=== PATIENT | male | born 1975 | race African-American/Black ===

== ENCOUNTER 2016-07-04 09:02 | Emergency (ER) | payer MEDICARE ==
[2016-07-04 09:20] VITALS: BP 114/78
[2016-07-04] MEDS ORDERED: KETOROLAC TROMETHAMINE INJ/PF 30 MG/1 ML SDV IV ONE (09:38)
[2016-07-04] MEDS ORDERED: PROCHLORPERAZINE EDISYLATE INJ 10 MG/2 ML VIAL IV ONE (09:38)
[2016-07-04] MEDS ORDERED: DIPHENHYDRAMINE HCL 50 MG/ML VIAL IV ONE (09:38)
[2016-07-04] MEDS ORDERED: BENZONATATE 100 MG CAPSULE PO ONE (09:39)
[2016-07-04] MEDS ORDERED: LIDOCAINE 5% (700 MG) TRANSDERMAL ADH..PATCH TP ONE (09:39)
[2016-07-04] MEDS ORDERED: ONDANSETRON ODT 4 MG TAB (6 TAB/DSPK) PO PRN (09:39)
--- NOTE | 2016-07-04 09:42 | ER Document Report ---
ED General - General Chief Complaint: Headache Stated Complaint: BACK PAIN Notes: Patient is a 40-year-old male with past medical history of HIV last known CD4 count was 750 who presents with multiple complaints. His first complaint is of a left-sided, dull, constant, throbbing headache with associated photophobia, nausea and vomiting. He states this is very similar to his prior migraine headaches. He has been trying [id number]-wozuqtk pain medication without relief. States this is the primary reason he came to the emergency department today. He has had come to the ER in the past for similar migraine headaches. He denies any associated weakness or numbness, confusion, fever, or altered mental status. He has complaints of chronic low back pain which he states is in the bilateral lumbar region and unchanged from prior. No difficulty with walking, urinary retention, incontinence, or distal weakness or numbness. He is also complaining of upper respiratory infection symptoms including nasal congestion, sore throat, a cough with production of a small amount of sputum. Multiple sick contacts with similar illness. Denies any shortness of breath, fever, syncope, or chest wall pain. TRAVEL OUTSIDE OF THE [place] IN LAST 30 DAYS: No - Related Data Allergies/Adverse Reactions: No Known Allergies Allergy (Verified 02/07/16 08:48) Past Medical History - General Information source: Patient - Social History Smoking Status: Current Every Day Smoker Frequency of alcohol use: None Drug Abuse: None Lives with: Spouse/Significant other Family History: Reviewed & Not Pertinent - Patient states none Patient has suicidal ideation: No Patient has homicidal ideation: No Pulmonary Medical History: Reports: Hx Asthma, Hx Bronchitis, Hx Pneumonia Neurological Medical History: Reports: Hx Migraine Renal/ Medical History: Denies: Hx Peritoneal Dialysis Musculoskeltal Medical History: Reports Hx Arthritis, Reports Hx Musculoskeletal Deformity - Chronic back pain Psychiatric Medical History: Reports: Hx Bipolar Disorder, Hx Depression Infectious Medical History: Reports: Hx HIV - Immunizations Hx Diphtheria, Pertussis, Tetanus Vaccination: Yes - 2011 Hx Pneumococcal Vaccination: 03/13/11 Review of Systems - Review of Systems Notes: Constitutional: Negative for fever. HENT: Positive for sore throat. Eyes: Negative for visual changes. Cardiovascular: Negative for chest pain. Respiratory: Negative for shortness of breath. Gastrointestinal: Negative for abdominal pain, positive for vomiting Genitourinary: Negative for dysuria. Musculoskeletal: Positive for back pain. Skin: Negative for rash. Neurological: Positive for headache, weakness or numbness. 10 point ROS negative except as marked above and in HPI. Physical Exam - Vital signs Vitals: Temp Pulse Resp BP Pulse Ox 98.4 F 97 20 114/78 95 07/04/16 09:07 07/04/16 09:07 07/04/16 09:07 07/04/16 09:07 07/04/16 09:07 Interpretation: Normal Notes: PHYSICAL EXAMINATION: GENERAL: Well-appearing, well-nourished and in no acute distress. HEAD: Atraumatic, normocephalic. EYES: Pupils equal round and reactive to light, extraocular movements intact, sclera anicteric, conjunctiva are normal. ENT: Nasal congestion, oropharynx clear without exudates. Moist mucous membranes. NECK: Normal range of motion, supple without lymphadenopathy LUNGS: Breath sounds clear to auscultation bilaterally and equal. No wheezes rales or rhonchi. HEART: Regular rate and rhythm without murmurs ABDOMEN: Soft, nontender, normoactive bowel sounds. No guarding, no rebound. No masses appreciated. EXTREMITIES: Normal range of motion, no pitting or edema. No cyanosis. Back: No midline spinal tenderness step-offs or deformities NEUROLOGICAL: Face symmetric. Tongue protrudes midline. Extraocular motions intact. Pupils are 2 mm and equally reactive. Normal speech, normal gait. 5 out of 5 strength in both the distal and proximal upper and lower extremities bilaterally. Sensation is grossly intact throughout. Finger to nose testing normal. Pronator drift normal. PSYCH: Normal mood, normal affect. SKIN: Warm, Dry, normal turgor, no rashes or lesions noted. Course - Re-evaluation Re-evalutation: 07/04/16 09:39 Patient presents with 3 complaints: Headache, a persistent cough for the past 5 days, and chronic back pain. Regarding patient's headache: appears to be most consistent with tension versus migrainous type headache. Headache was not maximal in onset, patient has no focal neurologic deficits, no nuchal rigidity, vital signs within normal limits , no papilledema, and patient is overall well in appearance. Based on clinical history and examination I do not suspect an acute subarachnoid hemorrhage, dural venous sinus thrombosis, acute meningitis, or intercranial mass. Given my low clinical suspicion for any acute life-threatening etiology, I do not feel advanced neuro imaging or laboratory testing is indicated at this time. Will proceed with headache cocktail and reassess. Regarding patient's back pain: No rapid progression of symptoms, systemic symptoms including fevers, chills, weight loss, history of recent bacterial infection, bilateral symptoms, numbness, weakness, difficulty walking, urinary retention or bowel incontinence, personal history of cancer, known AAA, or history of IV drug use. Exam is without point tenderness over vertebral bodies , pulsatile abdominal mass, and patient has symmetric and intact lower extremity strength, sensation, and reflexes without clonus. 2+ symmetric medial malleolar and dorsalis pedis pulses. Based on history and physical, I have a very low suspicion of a concerning etiology of pain including epidural compression syndrome, spinal infection, transverse myelitis, malignancy, abdominal aortic aneurysm, renal colic, acute lower extremity claudication, neurogenic claudication, ankylosing spondylitis, or other intra-abdominal process. Due to absence of concerning risk factors in history and physical as well as absence of rapidly progressive, severe, or bilateral symptoms, will defer imaging at this point. Of note patient had an MRI of his back for this same pain 5 months ago that did not show any acute findings. Regarding patient's cough and nasal congestion: Most consistent with a viral upper respiratory infection. Patient is overall well appearance, vitals within normal limits, well-hydrated. Patient denies any headache, neck pain, and has no evidence of meningismus on examination. Lungs are clear bilaterally. No evidence of respiratory distress. Based on clinical exam and history, I do not suspect an acute pneumonia, meningitis, strep pharyngitis, or an acute encephalitis. No laboratory or imaging testing is indicated at this time. 07/04/16 10:29 I is had resolution of his headache after receiving a migraine cocktail. He remains well in appearance, able to ambulate without difficulty, no focal neurologic deficits, vitals remained within normal limits.At this time will discharge with return precautions and follow-up recommendations. Verbal discharge instructions given a the bedside and opportunity for questions given. Medication warnings reviewed. Patient is in agreement with this plan and has verbalized understanding of return precautions and the need for primary care follow-up in the next 24-72 hours. - Vital Signs Vital signs: Temp Pulse Resp BP Pulse Ox 98.4 F 97 20 114/78 95 07/04/16 09:07 07/04/16 09:07 07/04/16 09:07 07/04/16 09:07 07/04/16 09:07 Discharge - Discharge Clinical Impression: Chronic back pain Qualifiers: Back pain location: low back pain Back pain laterality: bilateral Sciatica presence: without sciatica Qualified Code(s): M54.5 - Low back pain Upper respiratory infection Qualifiers: URI type: unspecified URI Qualified Code(s): J06.9 - Acute upper respiratory infection, unspecified Headache Qualifiers: Headache type: unspecified Headache chronicity pattern: acute headache Intractability: not intractable Qualified Code(s): R51 - Headache Condition: Good Disposition: HOME, SELF-CARE Additional Instructions: Your symptoms are most likely due to a viral infection it should resolve over the next 7-14 days. You should take yagg-aud-verwneb guanfacine per bottle instructions to help thin the mucus. For nasal congestion: I would recommend that you get gzjt-ivj-penoior oxymetazoline also known is afrin. Use only per bottle instructions and be sure to never use this for more than 3 days if you can develop severe rebound congestion. You may also use tylenol or ibuprofen as needed for aches and thorat discomfort. Please be sure to drink plenty of fluids and get rest. Return to the emergency department he began having difficulty breathing, chest pain, persistent vomiting, or any other symptoms that are concerning to you. You have been seen in the Emergency Department (ED) today for back pain. Your workup and exam have not shown any acute abnormalities and you are likely suffering from muscle strain or possible problems with your discs, but there is no treatment that will fix your symptoms at this time. You should also purchase a local lidocaine cream such as "aspercreme with lidocaine" and use per bottle instructions to the affected area. Apply heat to the area as often as you are able. Continue to keep active and avoid prolonged periods of bed rest. Please follow up with your doctor as soon as possible regarding today's ED visit and your back pain. Return to the ED for worsening back pain, fever, weakness or numbness of either leg, or if you develop either (1) an inability to urinate or have bowel movements, or (2) loss of your ability to control your bathroom functions (if you start having "accidents"), or if you develop other new symptoms that concern you.concern you. You have been seen in the Emergency Department (ED) for a headache. Please use Tylenol (acetaminophen) or Motrin (ibuprofen) as needed for symptoms, but only as written on the box. As we have discussed, please follow up with your primary care doctor as soon as possible regarding today's ED visit and your headache symptoms. Call your doctor or return to the ED if you have a worsening headache, sudden and severe headache, confusion, slurred speech, facial droop, weakness or numbness in any arm or leg, extreme fatigue, or other symptoms that concern you. Prescriptions: Benzonatate [Tessalon Perles 100 mg Capsule] 100 mg PO Q8HP PRN #40 capsule PRN Reason:
== END 2016-07-04 10:05 | disposition home or self-care (01) ==
LOC: ER 09:02
DX: G89.29 Other chronic pain (principal); M54.5 Low back pain; J06.9 Acute upper respiratory infection, unspecified; R51 Headache; H53.149 Visual discomfort, unspecified; R11.2 Nausea with vomiting, unspecified; F17.200 Nicotine dependence, unspecified, uncomplicated; Z21 Asymptomatic human immunodeficiency virus [HIV] infection status
CPT/HCPCS: 99283; 96374; 96375; A9270 ×2; J1200; J1885; J0780

== ENCOUNTER 2016-07-28 14:42 | Emergency (ER) | payer OTHER, MEDICARE ==
[2016-07-28 15:03] VITALS: BP 121/75
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
== END 2016-07-28 16:15 | disposition home or self-care (01) ==
LOC: ER 14:42
DX: S16.1XXA Strain of muscle, fascia and tendon at neck level, initial encounter (principal); S29.019A Strain of muscle and tendon of unspecified wall of thorax, initial encounter; S39.012A Strain of muscle, fascia and tendon of lower back, initial encounter; M25.519 Pain in unspecified shoulder; M79.606 Pain in leg, unspecified; V89.2XXA Person injured in unspecified motor-vehicle accident, traffic, initial encounter
CPT/HCPCS: 99283

== ENCOUNTER 2016-07-30 09:28 | Emergency (ER) | payer OTHER, MEDICARE, MEDICAID ==
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
[2016-07-30 10:33] VITALS: BP 110/57
[2016-07-30 10:51] LABS: HEMATOCRIT 40.3 % (37.9-51.0); HEMOGLOBIN 13.6 g/dL (13.5-17.0); HGB HCT DIFFERENCE 0.5; MEAN CORPUSCULAR HEMOGLOBIN 29.6 pg (27.0-33.4); MEAN CORPUSCULAR HGB CONC 33.7 g/dL (32.0-36.0); MEAN CORPUSCULAR VOLUME 88 fl (80-97); RED BLOOD COUNT 4.58 10^6/uL (4.35-5.55); RED CELL DISTRIBUTION WIDTH 12.7 % (11.5-14.0); WHITE BLOOD COUNT 6.2 10^3/uL (4.0-10.5)
[2016-07-30 11:12] LABS: BASOPHILS % (MANUAL) 0 % (0-2); EOSINOPHILS % (MANUAL) 0 % (0-6); LYMPHOCYTES % (MANUAL) 46 % (13-45); TOTAL CELLS COUNTED 100
[2016-07-30 11:14] LABS: POIKILOCYTOSIS SLIGHT
[2016-07-30 11:17] LABS: ALANINE AMINOTRANSFERASE 55 U/L (21-72); ALKALINE PHOSPHATASE 83 U/L (38-126); ANION GAP 11 (5-19); ASPARTATE AMINO TRANSFERASE 62 U/L (17-59); BILIRUBIN,DIRECT 0.3 mg/dL (0.0-0.4); BILIRUBIN,TOTAL 0.6 mg/dL (0.2-1.3); BLOOD UREA NITROGEN 17 mg/dL (7-20); CALCIUM 9.4 mg/dL (8.4-10.2); CARBON DIOXIDE 25 mmol/L (22-30); CHLORIDE 109 mmol/L (98-107); CREATINE KINASE 640 U/L (55-170); CREATININE RESULT 1.06 mg/dL (0.52-1.25); GLUCOSE 92 mg/dL (75-110); POTASSIUM 4.2 mmol/L (3.6-5.0); SODIUM 144.7 mmol/L (137-145); TOTAL PROTEIN 7.9 g/dL (6.3-8.2)
[2016-07-30] MEDS ORDERED: TRAMADOL HCL 50 MG TABLET PO ONE (11:33)
== END 2016-07-30 11:58 | disposition home or self-care (01) ==
LOC: ER 09:28
DX: M25.512 Pain in left shoulder (principal); M54.9 Dorsalgia, unspecified; R07.89 Other chest pain; V49.50XA Passenger injured in collision with unspecified motor vehicles in traffic accident, initial encounter; R74.8 Abnormal levels of other serum enzymes; J45.909 Unspecified asthma, uncomplicated; Z21 Asymptomatic human immunodeficiency virus [HIV] infection status; Z76.5 Malingerer [conscious simulation]
CPT/HCPCS: 36415; 80053; 82550; 85025; 99283

== ENCOUNTER 2017-06-11 03:16 | Emergency (ER) | payer MEDICARE, MEDICAID ==
[2017-06-11 04:00] LABS: ABSOLUTE EOSINOPHILS # (AUTO) 0.2 10^3/uL (0.0-0.6); ABSOLUTE LYMPHOCYTES (AUTO) 2.3 10^3/uL (0.5-4.7); ABSOLUTE MONOCYTES (AUTO) 0.5 10^3/uL (0.1-1.4); ABSOLUTE NEUT (AUTO) 2.4 10^3/uL (1.7-8.2); BASOPHILS % (AUTO) 0.8 % (0-2); EOSINOPHILS % (AUTO) 2.9 % (0-6); HEMATOCRIT 42.7 % (37.9-51.0); HEMOGLOBIN 14.6 g/dL (13.5-17.0); LYMPHOCYTES % (AUTO) 42.5 % (13-45); MEAN CORPUSCULAR HEMOGLOBIN 30.8 pg (27.0-33.4); MEAN CORPUSCULAR HGB CONC 34.1 g/dL (32.0-36.0); MEAN CORPUSCULAR VOLUME 91 fl (80-97); MONOCYTES % (AUTO) 9.7 % (3-13); PLATELET COUNT 251 10^3/uL (150-450); RED BLOOD COUNT 4.72 10^6/uL (4.35-5.55); RED CELL DISTRIBUTION WIDTH 12.9 % (11.5-14.0); SEGMENTED NEUTROPHILS % (AUTO) 44.1 % (42-78); TOTAL CELLS COUNTED % (AUTO) 100 %; WHITE BLOOD COUNT 5.3 10^3/uL (4.0-10.5)
[2017-06-11 04:27] LABS: ALANINE AMINOTRANSFERASE 44 U/L (21-72); ALBUMIN 3.8 g/dL (3.5-5.0); ALKALINE PHOSPHATASE 78 U/L (38-126); ANION GAP 9 (5-19); ASPARTATE AMINO TRANSFERASE 82 U/L (17-59); BILIRUBIN,DIRECT 0.4 mg/dL (0.0-0.4); BILIRUBIN,TOTAL 0.4 mg/dL (0.2-1.3); BLOOD UREA NITROGEN 20 mg/dL (7-20); CALCIUM 9.3 mg/dL (8.4-10.2); CARBON DIOXIDE 26 mmol/L (22-30); CHLORIDE 106 mmol/L (98-107); GLUCOSE 97 mg/dL (75-110); LIPASE 340.3 U/L (23-300); POTASSIUM 4.3 mmol/L (3.6-5.0); SODIUM 141.3 mmol/L (137-145); TOTAL PROTEIN 7.5 g/dL (6.3-8.2)
[2017-06-11] MEDS ORDERED: DICYCLOMINE HCL 20 MG TABLET PO ONE (04:45)
[2017-06-11] MEDS ORDERED: ONDANSETRON 4 MG TAB.RAPDIS PO ONE (04:45)
--- NOTE | 2017-06-11 04:45 | ER Document Report ---
ED General - General Chief Complaint: Abdominal Pain Stated Complaint: ABDOMINAL PAIN Time Seen by Provider: 06/11/17 03:59 TRAVEL OUTSIDE OF THE [place]. IN LAST 30 DAYS: No - HPI Patient complains to provider of: Abdominal pain Notes: Patient coming in for evaluation of abdominal pain. Patient has a history of HIV. Patient upon my evaluation sleeping easily arousable. When asked the patient about abdominal pain patient states "my stomach hurts". Denies fever chills nausea vomiting diarrhea. Patient is unable to pinpoint a 6 area of abdominal pain rubs his entire stomach when I asked the patient where he is tender at. Patient looks to be no obvious distress - Related Data Allergies/Adverse Reactions: No Known Allergies Allergy (Verified 06/11/17 03:25) Past Medical History - Social History Smoking Status: Unknown if Ever Smoked Family History: None Pulmonary Medical History: Reports: Hx Asthma, Hx Bronchitis, Hx Pneumonia Neurological Medical History: Reports: Hx Migraine Renal/ Medical History: Denies: Hx Peritoneal Dialysis Musculoskeltal Medical History: Reports Hx Arthritis, Reports Hx Musculoskeletal Deformity - Chronic back pain Psychiatric Medical History: Reports: Hx Bipolar Disorder, Hx Depression Infectious Medical History: Reports: Hx HIV - Immunizations Hx Diphtheria, Pertussis, Tetanus Vaccination: Yes - 2011 Hx Pneumococcal Vaccination: 03/13/11 Review of Systems - Review of Systems Constitutional: No symptoms reported EENT: No symptoms reported Cardiovascular: No symptoms reported Respiratory: No symptoms reported Gastrointestinal: Abdominal pain Genitourinary: No symptoms reported Male Genitourinary: No symptoms reported Musculoskeletal: No symptoms reported Skin: No symptoms reported Hematologic/Lymphatic: No symptoms reported Neurological/Psychological: No symptoms reported -: Yes All other systems reviewed and negative - 1 Physical Exam - Vital signs Interpretation: Normal - General General appearance: Appears well, Alert - HEENT Head: Normocephalic, Atraumatic Eyes: Normal Pupils: PERRL - Respiratory Respiratory status: No respiratory distress Chest status: Nontender Breath sounds: Normal Chest palpation: Normal - Cardiovascular Rhythm: Regular Heart sounds: Normal auscultation Murmur: No - Abdominal Inspection: Normal Distension: No distension Bowel sounds: Normal Tenderness: Nontender - Patient's abdomen is nontender to deep auscultation however when I use my hand to palpate his abdomen patient tenses up and moans in pain. Is very inconsistent. Organomegaly: No organomegaly - Back Back: Normal, Nontender - Extremities General upper extremity: Normal inspection, Nontender, Normal color, Normal ROM , Normal temperature General lower extremity: Normal inspection, Nontender, Normal color, Normal ROM , Normal temperature, Normal weight bearing. No: Rena's sign - Neurological Neuro grossly intact: Yes Cognition: Normal Orientation: AAOx4 Sonido Coma Scale Eye Opening: Spontaneous Son[place] Coma Scale Verbal: Oriented [place] Coma Scale Motor: Obeys Commands [place] Coma Scale Total: 15 Speech: Normal Motor strength normal: LUE, RUE, LLE, RLE Sensory: Normal - Psychological Associated symptoms: Normal affect, Normal mood - Skin Skin Temperature: Warm Skin Moisture: Dry Skin Color: Normal Course - Re-evaluation Re-evalutation: 06/11/17 06:19 The patient presents with abdominal pain without signs of peritonitis or other life-threatening or serious etiology. The patient appears stable for discharge and has been instructed to return immediately if the symptoms worsen in any way , or in 8-12hr if not improved for re-evaluation. The patient has been instructed to return if the symptoms worsen or change in any way. - Laboratory Result Diagrams: 06/11/17 03:50 06/11/17 03:50 Laboratory results interpreted by me: 06/11/17 03:50 AST 82 H Lipase 340.3 H Discharge - Discharge Clinical Impression: Hx of human immunodeficiency virus infection Abdominal pain Qualifiers: Abdominal location: generalized Qualified Code(s): R10.84 - Generalized abdominal pain Condition: Good Disposition: HOME, SELF-CARE Instructions: Abdominal Pain ([facility]), Antispasmodics ([facility]) Additional Instructions: Your laboratory studies not reveal significant pathology for abdominal pain. Her abdominal examination was benign. Take medication as prescribed return to ER symptoms worsen. Prescriptions: Dicyclomine HCl [Bentyl 20 mg Tablet] 20 mg PO QID #30 tablet Ondansetron [Zofran Odt] 4 mg PO Q6 PRN #30 tab.rapdis PRN Reason: For Nausea/Vomiting
[2017-06-11 06:24] VITALS: BP 122/76
== END 2017-06-11 06:30 | disposition home or self-care (01) ==
LOC: ER 03:16
DX: R10.84 Generalized abdominal pain (principal); B20 Human immunodeficiency virus [HIV] disease; J45.909 Unspecified asthma, uncomplicated
CPT/HCPCS: 99284; 36415; 83690; 85025; 80053; A9270 ×2; J3490; S0119

== ENCOUNTER 2017-07-05 13:53 | Emergency (ER) | payer MEDICARE, MEDICAID ==
--- NOTE | 2017-07-05 16:27 | RADIOLOGY REPORT (SQ) ---
EXAM DESCRIPTION: CHEST 2 VIEWS COMPLETED DATE/TIME: 07/05/2017 4:16 pm REASON FOR STUDY: cough COMPARISON: 08/24/2015 EXAM PARAMETERS: NUMBER OF VIEWS: two views TECHNIQUE: Digital Frontal and Lateral radiographic views of the chest acquired. RADIATION DOSE: NA LIMITATIONS: none FINDINGS: LUNGS AND PLEURA: No opacities, masses or pneumothorax. No pleural effusion. MEDIASTINUM AND HILAR STRUCTURES: No masses or contour abnormalities. HEART AND VASCULAR STRUCTURES: Heart normal size. No evidence for failure. BONES: No acute findings. HARDWARE: None in the chest. OTHER: No other significant finding. IMPRESSION: NO ACUTE RADIOGRAPHIC FINDING IN THE CHEST. TECHNICAL DOCUMENTATION: JOB ID: [id number] [employer]- All Rights Reserved Reading location - IP/workstation name: [email or web address]
--- NOTE | 2017-07-05 16:42 | ER Document Report ---
HPI - HPI Pain Level: 4 Notes: Patient is a 41-year-old male with a history of HIV, noncompliance, who presents to the ED complaining of a dry semi-productive cough 2 months. Patient states that he has been using [id number] meds with minimal relief. He is still eating and drinking without difficulties. He is urinating normally and having normal bowel movements. Patient states that the cough is starting to cause soreness around his sides and his back. Patient is usually seen through [facility], and has not been taking his medications as he was told to. He denies any drug allergies or IV drug use. No other concerns or complaints at this time. Denies any headache, fever, neck pain, URI, sore throat, chest pain, palpitations, syncope, shortness of breath, wheeze, dyspnea , abdominal pain, nausea/vomiting/diarrhea, urinary retention, dysuria, hematuria, loss of control of bowel or bladder, numbness/tingling, saddle anesthesia, muscle paralysis/weakness, or rash. - ROS Systems Reviewed and Negative: Yes All other systems reviewed and negative - REPRODUCTIVE Reproductive: DENIES: : Past Medical History - Social History Smoking Status: Unknown if Ever Smoked Family History: None Pulmonary Medical History: Reports: Hx Asthma, Hx Bronchitis, Hx Pneumonia Neurological Medical History: Reports: Hx Migraine Renal/ Medical History: Denies: Hx Peritoneal Dialysis Musculoskeltal Medical History: Reports Hx Arthritis, Reports Hx Musculoskeletal Deformity - Chronic back pain Psychiatric Medical History: Reports: Hx Bipolar Disorder, Hx Depression Infectious Medical History: Reports: Hx HIV - Immunizations Hx Diphtheria, Pertussis, Tetanus Vaccination: Yes - 2011 Hx Pneumococcal Vaccination: 03/13/11 Vertical Provider Document - CONSTITUTIONAL Agree With Documented VS: Yes Notes: PHYSICAL EXAMINATION: GENERAL: Well-appearing, well-nourished and in no acute distress. A&Ox4. Answers questions appropriately. Moves comfortably w/o notable distress HEAD: Atraumatic, normocephalic. EYES: Pupils equal round and reactive to light, extraocular movements intact, sclera anicteric, conjunctiva are normal. ENT: EAC clear b/l. TM's intact b/l without erythema, fluid, or perforation. Nares patent and without discharge. oropharynx no erythema without exudates. No tonsilar hypertrophy without erythema or exudate. No palatine shift. Uvula midline. No tongue protrusion. No drooling, hoarseness, or airway compromise. Moist mucous membranes. No sinus tenderness. NECK: Normal range of motion, supple without lymphadenopathy. No rigidity/ meningismus. LUNGS: Breath sounds clear to auscultation bilaterally and equal. No wheezes rales or rhonchi. No retractions HEART: Regular rate and rhythm without murmurs, rubs, gallops. ABDOMEN: Soft, nontender, nondistended abdomen. No guarding, no rebound. No masses appreciated. Normal bowel sounds present. No CVA tenderness bilaterally. NEUROLOGICAL: Normal speech, normal gait. Normal sensory, motor exams PSYCH: Normal mood, normal affect. SKIN: Warm, Dry, normal turgor, no rashes or lesions noted. - INFECTION CONTROL TRAVEL OUTSIDE OF THE [place] IN LAST 30 DAYS: No Course - Re-evaluation Re-evalutation: 07/05/17 16:43 Patient is an afebrile, well-hydrated, 41-year-old male, HIV positive, who presents to the ED with acute bronchitis. Vitals are acceptable. PE is otherwise unremarkable. Patient has had symptoms for 2 months. He has not been taking his antiviral medications. He has no significant tachycardia, tachypnea, or hypoxia. He is tolerating p.o. without difficulties. He is nontoxic-appearing. Because of his prolonged symptoms and medical history, I will send him home with a prescription for Zithromax. Chest x-ray was negative otherwise. Low suspicion for any sepsis, meningitis, severe dehydration, pneumothorax, dissection, or other systemic emergent condition at this time. Conservative measures otherwise for symptoms. Recheck with your PCM this week. Return to the ED with any worsening/concerning symptoms otherwise as reviewed discharge. Patient is in agreement. - Vital Signs Vital signs: Temp Pulse Resp BP Pulse Ox 98.1 F 91 16 121/85 97 07/05/17 14:16 07/05/17 14:16 07/05/17 14:16 07/05/17 14:16 07/05/17 14:16 Discharge - Discharge Clinical Impression: Acute bronchitis Qualifiers: Bronchitis organism: unspecified organism Qualified Code(s): J20.9 - Acute bronchitis, unspecified Condition: Stable Disposition: HOME, SELF-CARE Instructions: Bronchitis ([facility]) Additional Instructions: Maintain adequate fluid intake Take meds as directed tylenol/ibuprofen as needed over the counter cold medication as needed for symptoms Humidified air may help Wash your hands regularly Wear a mask when coughing F/u: with your PCM in 3-5 days for a recheck Return to the ED with any fever, worsening pain, chest pain, palpitations, syncope, worsening LANDRY, neck pain/stiffness, shortness of breath, wheezing, drooling, trouble swallowing/breathing, abdominal pain, n/v/d, rash, or worsening/concerning symptoms otherwise. Prescriptions: Azithromycin [Zithromax 250 mg Tablet] 250 mg PO ASDIR PRN #6 tablet PRN Reason: Referrals: Zaid Costello [Other] - Follow up in 3-5 days
[2017-07-05 17:15] VITALS: BP 130/92
== END 2017-07-05 17:16 | disposition home or self-care (01) ==
LOC: ER 13:53
DX: J20.9 Acute bronchitis, unspecified (principal); B20 Human immunodeficiency virus [HIV] disease
CPT/HCPCS: 71046; 99283

== ENCOUNTER 2017-07-31 04:54 | Emergency (ER) | payer MEDICARE, MEDICAID ==
[2017-07-31 04:59] VITALS: BP 130/93
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
[2017-07-31] MEDS ORDERED: ACETAMINOPHEN 325 MG TABLET PO ONE (06:37)
[2017-07-31] MEDS ORDERED: IBUPROFEN 600 MG TABLET PO ONE (06:37)
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
== END 2017-07-31 06:58 | disposition home or self-care (01) ==
LOC: ER 04:54
DX: S40.011A Contusion of right shoulder, initial encounter (principal); M25.561 Pain in right knee; M54.2 Cervicalgia; M25.511 Pain in right shoulder; Y04.8XXA Assault by other bodily force, initial encounter; J45.909 Unspecified asthma, uncomplicated
CPT/HCPCS: 99284; 73564; 73030; A9270 ×2

== ENCOUNTER 2017-09-18 02:32 | Emergency (ER) | payer MEDICARE, MEDICAID ==
[2017-09-18 02:40] VITALS: BP 124/68
--- NOTE | 2017-09-18 05:29 | ER Document Report ---
HPI - HPI Patient complains to provider of: left hand pain Pain Level: Denies - REPRODUCTIVE Reproductive: DENIES: : Past Medical History - Social History Family History: None Pulmonary Medical History: Reports: Hx Asthma, Hx Bronchitis, Hx Pneumonia Neurological Medical History: Reports: Hx Migraine Renal/ Medical History: Denies: Hx Peritoneal Dialysis Musculoskeletal Medical History: Reports Hx Arthritis, Reports Hx Musculoskeletal Deformity - Chronic back pain Psychiatric Medical History: Reports: Hx Bipolar Disorder, Hx Depression Infectious Medical History: Reports: Hx HIV - Immunizations Hx Diphtheria, Pertussis, Tetanus Vaccination: Yes - 2011 Hx Pneumococcal Vaccination: 03/13/11 Vertical Provider Document - INFECTION CONTROL TRAVEL OUTSIDE OF THE [place] IN LAST 30 DAYS: No Course - Vital Signs Vital signs: Temp Pulse Resp BP Pulse Ox 97.7 F 93 16 124/68 98 09/18/17 02:38 09/18/17 02:38 09/18/17 02:38 09/18/17 02:38 09/18/17 02:38
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
--- NOTE | 2017-09-18 06:15 | RADIOLOGY REPORT (SQ) ---
Left hand three view on 09/18/2017 at 5:26 AM Clinical indications: Injury, third digit swelling, pain COMPARISON: None FINDINGS: There is no radiopaque foreign body. There are no acute fractures. Visualized joints are well aligned. No bony abnormality is noted. IMPRESSION: No acute bony abnormality.
[2017-09-18] MEDS ORDERED: ACETAMINOPHEN 325 MG TABLET PO ONE (06:41)
[2017-09-18] MEDS ORDERED: IBUPROFEN 600 MG TABLET PO ONE (06:41)
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
== END 2017-09-18 07:09 | disposition home or self-care (01) ==
LOC: ER 02:32
DX: S69.92XA Unspecified injury of left wrist, hand and finger(s), initial encounter (principal); Y04.0XXA Assault by unarmed brawl or fight, initial encounter; F17.200 Nicotine dependence, unspecified, uncomplicated; J45.909 Unspecified asthma, uncomplicated; Z21 Asymptomatic human immunodeficiency virus [HIV] infection status
CPT/HCPCS: 99283; 73130; A9270 ×2

== ENCOUNTER 2018-09-06 09:27 | Emergency (ER) | payer MEDICARE, MEDICAID ==
[2018-09-06 09:45] VITALS: BP 133/94
[2018-09-06] MEDS ORDERED: ACETAMINOPHEN 325 MG TABLET PO ONE (09:55)
[2018-09-06] MEDS ORDERED: IPRATROPIUM/ALBUTEROL 0.5-2.5 MG/3 ML AMPUL NEB ONE (09:55)
[2018-09-06] MEDS ORDERED: PREDNISONE 20 MG TABLET PO ONE (09:55)
[2018-09-06] MEDS ORDERED: LIDOCAINE 5% (700 MG) TRANSDERMAL ADH..PATCH TP ONE (09:55)
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
== END 2018-09-06 11:15 | disposition home or self-care (01) ==
LOC: ER 09:27
DX: R07.81 Pleurodynia (principal); S91.112A Laceration without foreign body of left great toe without damage to nail, initial encounter; X58.XXXA Exposure to other specified factors, initial encounter; J02.9 Acute pharyngitis, unspecified; J45.909 Unspecified asthma, uncomplicated; F17.200 Nicotine dependence, unspecified, uncomplicated; Z87.01 Personal history of pneumonia (recurrent); Z21 Asymptomatic human immunodeficiency virus [HIV] infection status
CPT/HCPCS: 94640; 99283; 87070; 87880; 87077; 71046; A9270 ×3; J7512; J7620

== ENCOUNTER 2018-11-01 06:36 | Emergency (ER) | payer MEDICARE, MEDICAID ==
[2018-11-01] MEDS ORDERED: KETOROLAC TROMETHAMINE INJ/PF 30 MG/1 ML SDV IV ONE (07:04)
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
[2018-11-01 07:17] LABS: ABSOLUTE BASOPHILS # (AUTO) 0.1 10^3/uL (0.0-0.2); ABSOLUTE EOSINOPHILS # (AUTO) 0.3 10^3/uL (0.0-0.6); ABSOLUTE LYMPHOCYTES (AUTO) 2.6 10^3/uL (0.5-4.7); ABSOLUTE MONOCYTES (AUTO) 0.4 10^3/uL (0.1-1.4); ABSOLUTE NEUT (AUTO) 1.1 10^3/uL (1.7-8.2); BASOPHILS % (AUTO) 1.4 % (0-2); EOSINOPHILS % (AUTO) 6.1 % (0-6); HEMATOCRIT 38.5 % (37.9-51.0); HEMOGLOBIN 13.1 g/dL (13.5-17.0); LYMPHOCYTES % (AUTO) 57.7 % (13-45); MEAN CORPUSCULAR HEMOGLOBIN 30.5 pg (27.0-33.4); MEAN CORPUSCULAR VOLUME 90 fl (80-97); MONOCYTES % (AUTO) 9.9 % (3-13); PLATELET COUNT 181 10^3/uL (150-450); RED BLOOD COUNT 4.29 10^6/uL (4.35-5.55); RED CELL DISTRIBUTION WIDTH 13.4 % (11.5-14.0); SEGMENTED NEUTROPHILS % (AUTO) 24.9 % (42-78); TOTAL CELLS COUNTED % (AUTO) 100 %; WHITE BLOOD COUNT 4.5 10^3/uL (4.0-10.5)
[2018-11-01 07:30] LABS: ALBUMIN 2.9 g/dL (3.5-5.0); ALKALINE PHOSPHATASE 59 U/L (38-126); ASPARTATE AMINO TRANSFERASE 29 U/L (17-59); BILIRUBIN,DIRECT 0.2 mg/dL (0.0-0.4); BILIRUBIN,TOTAL 0.2 mg/dL (0.2-1.3); BLOOD UREA NITROGEN 13 mg/dL (7-20); CALCIUM 7.7 mg/dL (8.4-10.2); CHLORIDE 111 mmol/L (98-107); CREATINE KINASE 239 U/L (55-170); GLUCOSE 81 mg/dL (75-110); POTASSIUM 3.4 mmol/L (3.6-5.0); TOTAL PROTEIN 6.2 g/dL (6.3-8.2)
[2018-11-01 07:35] LABS: CARBON DIOXIDE 24 mmol/L (22-30)
--- NOTE | 2018-11-01 07:36 | RADIOLOGY REPORT (SQ) ---
EXAM DESCRIPTION: XR CHEST 2 VIEWS COMPLETED DATE/TME: 11/01/2018 07:03 CLINICAL HISTORY: 43 years Male, chest pain COMPARISON:Sep 06 2018NUMBER OF VIEWS/TECHNIQUE: 2, Frontal, Lateral FINDINGS: Mild chronic deformity of the right seventh posterior lateral rib. Adequate lung volume, clear parenchyma, normal cardiac silhouette, and intact bony thorax. IMPRESSION: No acute cardiopulmonary findings.
[2018-11-01 07:45] LABS: ANION GAP 4 (5-19)
[2018-11-01] MEDS ORDERED: NORMAL SALINE 1000 ML 1,000 ML IV ONE (08:05)
[2018-11-01 10:03] LABS: URINE AMPHETAMINES SCREEN NEGATIVE; URINE BARBITURATES SCREEN NEGATIVE; URINE BENZODIAZEPINES SCREEN NEGATIVE; URINE COCAINE SCREEN UNCONFIRMED POSITIVE; URINE MARIJUANA (THC) SCREEN NEGATIVE; URINE METHADONE SCREEN NEGATIVE; URINE PHENCYCLIDINE SCREEN NEGATIVE
[2018-11-01 10:56] VITALS: BP 111/80
--- NOTE | 2018-11-01 11:01 | ER Document Report ---
ED General - General Chief Complaint: Headache Stated Complaint: HEADACHE Time Seen by Provider: 11/01/18 07:03 Primary Care Provider: PIETER MEJÍA NP [Primary Care Provider] - Follow up as needed Mode of Arrival: Medic Notes: RME NOTE: Patient is a 43-year-old male with history of HIV presents the emergency department onset of headache and chest pain after patient walked approximately 15 miles. Patient reports the pain in his chest feels like a throbbing pain in the center of his stress. He states that the chest pain actually started yesterday and has progressed through the night. He denies any nausea, vomiting, shortness of breath or radiation of this pain. He does report generalized fatigue. My HPI: Patient is currently denying any headache or chest pain. Patient voices he is hungry. Patient states he has a history of HIV but is denying any history of hypertension, hyperlipidemia, coronary artery disease or diabetes. Patient voices that he does smoke cigarettes but is denying any illicit drug use. Patient has been seen at this facility in the past for cocaine abuse. TRAVEL OUTSIDE OF THE [place] IN LAST 30 DAYS: No - Related Data Allergies/Adverse Reactions: No Known Allergies Allergy (Verified 09/06/18 09:29) Past Medical History - General Information source: Patient - Social History Smoking Status: Former Smoker Chew tobacco use (# tins/day): Yes Frequency of alcohol use: Occasional Drug Abuse: None Family History: None Patient has suicidal ideation: No Patient has homicidal ideation: No Pulmonary Medical History: Reports: Hx Asthma, Hx Bronchitis, Hx Pneumonia Neurological Medical History: Reports: Hx Migraine Renal/ Medical History: Denies: Hx Peritoneal Dialysis Musculoskeletal Medical History: Reports Hx Arthritis, Reports Hx Musculoskeletal Deformity - Chronic back pain Psychiatric Medical History: Reports: Hx Bipolar Disorder, Hx Depression Infectious Medical History: Reports: Hx HIV - Immunizations Hx Diphtheria, Pertussis, Tetanus Vaccination: Yes - 2011 Hx Pneumococcal Vaccination: 03/13/11 Review of Systems - Review of Systems Constitutional: denies: Fever EENT: No symptoms reported Cardiovascular: See HPI Respiratory: No symptoms reported Gastrointestinal: No symptoms reported Genitourinary: No symptoms reported Male Genitourinary: No symptoms reported Musculoskeletal: No symptoms reported Skin: No symptoms reported Hematologic/Lymphatic: No symptoms reported Neurological/Psychological: See HPI Physical Exam - Vital signs Vitals: Temp Resp Pulse Ox 97.8 F 15 98 11/01/18 06:53 11/01/18 06:53 11/01/18 06:53 - Notes Notes: GENERAL: Alert, interacts well. No acute distress. HEAD: Normocephalic, atraumatic. EYES: Pupils equal, round, and reactive to light. Extraocular movements intact. ENT: Oral mucosa moist, tongue midline. NECK: Full range of motion. Supple. Trachea midline. LUNGS: Clear to auscultation bilaterally, no wheezes, rales, or rhonchi. No respiratory distress. HEART: Regular rate and rhythm. No murmur ABDOMEN: Soft, non-tender. Non-distended. Bowel sounds present in all 4 quadrants. EXTREMITIES: Moves all 4 extremities spontaneously. No edema, normal radial and dorsalis pedis pulses bilaterally. No cyanosis. BACK: no cervical, thoracic, lumbar midline tenderness. No saddle anesthesia, normal distal neurovascular exam. NEUROLOGICAL: Alert and oriented x3. Normal speech. cranial nerves II through XII grossly intact. PSYCH: Normal affect, normal mood. SKIN: Warm, dry, normal turgor. No rashes or lesions noted. Course - Re-evaluation Re-evalutation: EKG heart rate 67, accelerated junctional escape rhythm, QTc 439, no ST segment elevations or depressions noted. Patient was initially RMEed comes to the emergency department with a generalized headache and chest pain. Upon my evaluation of the patient he is sleeping, easily arousable with verbal stimuli. Patient voices he no longer has any chest pain and his headache has subsided. Patient is voicing that he has not eaten anything for the last 2 days and would like food. I discussed with patient we can order a tray from the cafeteria. I have also discussed need for repeat troponin for ACS rule out. Patient voices understanding and states "can I go back to sleep now?" Repeat troponin ordered for 10:00. Nursing staff brings to my attention the Pt. is refusing the repeat troponin. I reevaluate the patient and he states that the IV he currently has placed is hurting him. He would like it removed. Discussed with patient removing IV and continuing to do a troponin for ACS rule out. Patient again voices he is hungry, I have spoken with nursing staff about food tray. Nursing staff states they ordered that they are waiting for the cafeteria to bring it. Bhavik crackers and soda offered to the patient. Patient voices he will stay for repeat troponin. Continues to deny any chest pain or headache. 11/01/18 10:55 At this time the nurse brings my attention that the patient had a friend arrived in his room. Shortly after that wanted to leave. I discussed with patient need for repeat troponin and patient would like to leave the emergency department AGAINST MEDICAL ADVICE. AGAINST MEDICAL ADVICE paperwork signed by patient and witnessed by nursing staff. Patient and friend are seen walking out of the emergency room in no apparent distress. Patient does not wait for discharge paperwork. Laboratory 11/01/18 11/01/18 11/01/18 07:02 07:02 07:02 WBC 4.5 RBC 4.29 L Hgb 13.1 L Hct 38.5 MCV 90 MCH 30.5 MCHC 34.0 RDW 13.4 Plt Count 181 Lymph % (Auto) 57.7 H [place] % (Auto) 9.9 Eos % (Auto) 6.1 H Baso % (Auto) 1.4 Absolute Neuts (auto) 1.1 L Absolute Lymphs (auto) 2.6 Absolute Monos (auto) 0.4 Absolute Eos (auto) 0.3 Absolute Basos (auto) 0.1 Seg Neutrophils % 24.9 L Sodium 139.1 Potassium 3.4 L Chloride 111 H Carbon Dioxide 24 Anion Gap 4 L BUN 13 Creatinine 0.89 Est GFR ( Amer) > 60 Est GFR (MDRD) Non-Af > 60 Glucose 81 Calcium 7.7 L Total Bilirubin 0.2 Direct Bilirubin 0.2 Neonat Total Bilirubin Not Reportable Neonat Direct Bilirubin Not Reportable Neonat Indirect Bili Not Reportable AST 29 ALT 16 Alkaline Phosphatase 59 Creatine Kinase 239 H Troponin I < 0.012 Total Protein 6.2 L Albumin 2.9 L Urine Opiates Screen Urine Methadone Screen Ur Barbiturates Screen Ur Phencyclidine Scrn Ur Amphetamines Screen U Benzodiazepines Scrn Urine Cocaine Screen U Marijuana (THC) Screen 11/01/18 09:35 WBC RBC Hgb Hct MCV MCH MCHC RDW Plt Count Lymph % (Auto) [place] % (Auto) Eos % (Auto) Baso % (Auto) Absolute Neuts (auto) Absolute Lymphs (auto) Absolute Monos (auto) Absolute Eos (auto) Absolute Basos (auto) Seg Neutrophils % Sodium Potassium Chloride Carbon Dioxide Anion Gap BUN Creatinine Est GFR ( Amer) Est GFR (MDRD) Non-Af Glucose Calcium Total Bilirubin Direct Bilirubin Neonat Total Bilirubin Neonat Direct Bilirubin Neonat Indirect Bili AST ALT Alkaline Phosphatase Creatine Kinase Troponin I Total Protein Albumin Urine Opiates Screen NEGATIVE Urine Methadone Screen NEGATIVE Ur Barbiturates Screen NEGATIVE Ur Phencyclidine Scrn NEGATIVE Ur Amphetamines Screen NEGATIVE U Benzodiazepines Scrn NEGATIVE Urine Cocaine Screen UNCONFIRMED POSITIVE U Marijuana (THC) Screen NEGATIVE Chest X-Ray 11/01/18 07:03 IMPRESSION: No acute cardiopulmonary findings. - Vital Signs Vital signs: Temp Pulse Resp BP Pulse Ox 97.8 F 13 120/87 H 100 11/01/18 06:53 11/01/18 09:01 11/01/18 09:00 11/01/18 09:01 - Laboratory Result Diagrams: 11/01/18 07:02 11/01/18 07:02 Laboratory results interpreted by me: 11/01/18 11/01/18 07:02 07:02 RBC 4.29 L Hgb 13.1 L Lymph % (Auto) 57.7 H Eos % (Auto) 6.1 H Absolute Neuts (auto) 1.1 L Seg Neutrophils % 24.9 L Potassium 3.4 L Chloride 111 H Anion Gap 4 L Calcium 7.7 L Creatine Kinase 239 H Total Protein 6.2 L Albumin 2.9 L Discharge - Discharge Clinical Impression: Chest pain Qualifiers: Chest pain type: unspecified Qualified Code(s): R07.9 - Chest pain, unspecified Condition: Stable Disposition: AGAINST MEDICAL ADVICE Referrals: PIETER MEJÍA NP [Primary Care Provider] - Follow up as needed
--- NOTE | 2018-11-02 23:16 | EKG REPORT ---
SEVERITY:- ABNORMAL ECG - SINUS RHYTHM : Confirmed by: Marek Gross 02-Nov-2018 23:16:03
== END 2018-11-01 10:56 | disposition left against medical advice (07) ==
LOC: ER 06:36
DX: R07.9 Chest pain, unspecified (principal); R51 Headache; I10 Essential (primary) hypertension; I25.10 Atherosclerotic heart disease of native coronary artery without angina pectoris; E11.9 Type 2 diabetes mellitus without complications; R53.83 Other fatigue; Z21 Asymptomatic human immunodeficiency virus [HIV] infection status; F14.10 Cocaine abuse, uncomplicated; Z87.891 Personal history of nicotine dependence; J45.909 Unspecified asthma, uncomplicated
CPT/HCPCS: 93005; 99284; 96361; 96374; 36415; 82550; 85025; 80053; 84484; 80307; 71046; 93010; J1885; J7030

== ENCOUNTER 2018-11-09 21:14 | Inpatient (IN) | payer MEDICARE, MEDICAID ==
[2018-11-09] MEDS ORDERED: NALOXONE HCL INJ 2 MG/2 ML DISP.SYRIN IV ONE ×2 (21:23→22:07)
--- NOTE | 2018-11-09 21:25 | ER Document Report ---
ED General - General Chief Complaint: Altered Mental Status Stated Complaint: UNRESPONSIVE Time Seen by Provider: 11/09/18 21:22 Primary Care Provider: PIETER MEJÍA NP [Primary Care Provider] - Follow up as needed Notes: Patient presents with altered mental status. He was found in a car in the parking lot unresponsive by staff. He was rushed to bed 18 for evaluation. Marijuana smell in the car. Question substance abuse. Patient cannot give a history. TRAVEL OUTSIDE OF THE [place] IN LAST 30 DAYS: No - Related Data Allergies/Adverse Reactions: No Known Allergies Allergy (Verified 11/09/18 21:19) Past Medical History - General Cannot obtain history due to: Altered mental status - Social History Smoking Status: Current Every Day Smoker Family History: None Pulmonary Medical History: Reports: Hx Asthma, Hx Bronchitis, Hx Pneumonia Neurological Medical History: Reports: Hx Migraine Renal/ Medical History: Denies: Hx Peritoneal Dialysis Musculoskeletal Medical History: Reports Hx Arthritis, Reports Hx Musculoskeletal Deformity - Chronic back pain Psychiatric Medical History: Reports: Hx Bipolar Disorder, Hx Depression Infectious Medical History: Reports: Hx HIV - Immunizations Hx Diphtheria, Pertussis, Tetanus Vaccination: Yes - 2011 Hx Pneumococcal Vaccination: 03/13/11 Review of Systems - Review of Systems Notes: REVIEW OF SYSTEMS Mental status PHYSICAL EXAMINATION General: Appears obtunded Head: Atraumatic, normocephalic ENT: Mouth normal, oropharynx moist, no exudates or tonsillar enlargement. Ex cessive nasal secretions. Eyes: Conjunctiva normal, pupils equal, lids normal peoples 2 mm bilaterally. Neck: No JVD, supple, no guarding CVS: Tachycardic, regular rhythm, no murmurs Resp: No resp distress, equal and normal breath sounds bilaterally GI: Nondistended, soft, no tenderness to palpation, no rebound or guarding Ext: No deformities, no edema, normal range of motion in upper and lower ext Back: No CVA or midline TTP Skin: No rash, warm Lymphatic: No lymphadeopathy noted Neuro: Assist to sternal rub. Moans. Withdraws all extremities to pain.. Physical Exam - Vital signs Vitals: Pulse Resp Pulse Ox 111 H 14 94 11/09/18 21:23 11/09/18 21:23 11/09/18 21:23 Course - Re-evaluation Re-evalutation: 11/09/18 22:10 Patient presents with altered mental status alternating with somnolence and agitation. Tachycardic. Initially hypoxic but corrected with oxygen and airway repositioning. Suspect drug/alcohol, but infection/brain trauma could be contributing. The patient was given Narcan. I placed an EJ IV on him because he had bad access. He did not respond much to Narcan. Saturations maintained. Initial labs are coming backpatient has a respiratory acidosis/mixed with a metabolic acidosis. I will draw lactic and cultures, check CK. Ordered head CTnegative. Chest x-ray obtained initially is also negative. 11/09/18 22:12 Patient also seems to have slight acute renal failure, with slight hyperkalemia but his EKG actually looks better than it was last time where it had some peak T waves. We will hydrate with 2 L of NS. 11/09/18 22:47 Patient reassessed. Incredibly diaphoretic but vitals are normal except for heart rate 105. He is actually slightly more responsive and denies substance use. Reviewing his chart he has several U tox positive for cocaine. At this time he will be admitted for acute kidney injury and hydration. 11/10/18 00:25 Patient became hypotensive at one point recently about midnight. His pressure has come up with some fluids. He also became hypothermic. He is on a bear hugger and I have ordered blood cultures. I have covered him with antibiotics for POOL NURSE infection and broad-spectrum for sepsis. He is agitated such that puncture would be difficult. Spoke with Jatin Blank hospitalist at about 1130. He states this patient seems like an ICU patient. I then spoke with Dr. Mata the rn clinical trials he states that he is not environmental sampling technician and is not first call for ICU patients. I then spoke again with Dr. Blank who refuses to admit the patient. I raised the issue with the charge nurse and eventually the manager house. They are in discussions about he will be admitting this patient. Meanwhile I am still providing critical care services. 11/10/18 01:23 Dr. Mata is in the department to admit the patient to the ICU. - Vital Signs Vital signs: Temp Pulse Resp BP Pulse Ox 94.8 F L 115 H 13 109/62 96 11/10/18 00:45 11/09/18 21:47 11/10/18 00:45 11/10/18 00:45 11/10/18 00:45 - Laboratory Result Diagrams: 11/09/18 21:30 11/09/18 21:30 Laboratory results interpreted by me: 11/09/18 11/09/18 11/09/18 21:23 21:30 21:30 WBC 11.6 H [place] % (Auto) 2.1 L Absolute Neuts (auto) 8.8 H VBG pH VBG pCO2 VBG HCO3 Potassium 5.3 H Carbon Dioxide 21 L Creatinine 1.90 H Est GFR ( Amer) 47 L Est GFR (MDRD) Non-Af 39 L POC Glucose 217 H Lactic Acid Creatine Kinase Urine Protein Urine Blood 11/09/18 11/09/18 11/09/18 21:30 21:50 22:13 WBC [place] % (Auto) Absolute Neuts (auto) VBG pH 7.10 L* VBG pCO2 64.3 H VBG HCO3 19.3 L Potassium Carbon Dioxide Creatinine Est GFR ( Amer) Est GFR (MDRD) Non-Af POC Glucose Lactic Acid 5.8 H Creatine Kinase 257 H Urine Protein Urine Blood 11/09/18 22:31 WBC [place] % (Auto) Absolute Neuts (auto) VBG pH VBG pCO2 VBG HCO3 Potassium Carbon Dioxide Creatinine Est GFR ( Amer) Est GFR (MDRD) Non-Af POC Glucose Lactic Acid Creatine Kinase Urine Protein 100 H Urine Blood SMALL H - Diagnostic Test Radiology reviewed: Image reviewed, Reports reviewed - EKG Interpretation by Me EKG shows normal: Sinus rhythm Rate: Tachycardia Rhythm: NSR When compared to previous EKG there are: Changes noted Procedures - Additional Procedures IV insertion Time performed: 21:10 Additional Procedures: IV insertion - Left external jugular vein. Prepped in usual fashion. 18-gauge catheter inserted. True blood. Flushed. Secured. Tolerated well. Critical Care Note - Critical Care Note Total time excluding time spent on procedures (mins): 72 - The above patient is critically ill. Not including procedures, but including direct re-evaluations, speaking with patient and/or consultants, interpreting results, and documenting, I spent the total amount of minute listed listed above on critical care time Discharge - Discharge Clinical Impression: Acute kidney injury Altered mental status Qualifiers: Altered mental status type: delirium Qualified Code(s): R41.0 - Disorientation, unspecified Condition: Fair Disposition: ADMITTED INPATIENT Admitting Provider: Adolfo- rn clinical trials - rn clinical trials came in 20 Unit Admitted: ICU Referrals: PIETER MEJÍA NITRO MAN [Primary Care Provider] - Follow up as needed
[2018-11-09 21:52] LABS: ABSOLUTE EOSINOPHILS # (AUTO) 0.1 10^3/uL (0.0-0.6); ABSOLUTE LYMPHOCYTES (AUTO) 2.3 10^3/uL (0.5-4.7); ABSOLUTE MONOCYTES (AUTO) 0.2 10^3/uL (0.1-1.4); ABSOLUTE NEUT (AUTO) 8.8 10^3/uL (1.7-8.2); BASOPHILS % (AUTO) 0.1 % (0-2); EOSINOPHILS % (AUTO) 1.3 % (0-6); HEMATOCRIT 45.1 % (37.9-51.0); HEMOGLOBIN 15.2 g/dL (13.5-17.0); LYMPHOCYTES % (AUTO) 20.2 % (13-45); MEAN CORPUSCULAR HEMOGLOBIN 31.1 pg (27.0-33.4); MEAN CORPUSCULAR HGB CONC 33.6 g/dL (32.0-36.0); MEAN CORPUSCULAR VOLUME 93 fl (80-97); MONOCYTES % (AUTO) 2.1 % (3-13); PLATELET COUNT 300 10^3/uL (150-450); RED BLOOD COUNT 4.87 10^6/uL (4.35-5.55); SEGMENTED NEUTROPHILS % (AUTO) 76.3 % (42-78); TOTAL CELLS COUNTED % (AUTO) 100 %; WHITE BLOOD COUNT 11.6 10^3/uL (4.0-10.5)
[2018-11-09 22:02] LABS: VENOUS BLOOD BASE EXCESS -11.5 mmol/L; VENOUS BLOOD HCO3 19.3 mmol/L (20-32); VENOUS BLOOD PCO2 64.3 mmHg (35-63)
[2018-11-09 22:05] LABS: VENOUS BLOOD PH 7.1 (7.30-7.42)
[2018-11-09] MEDS ORDERED: RINGERS SOLUTION,LACTATED 1,000 ML IV PRN (22:07)
[2018-11-09 22:08] LABS: ANION GAP 18 (5-19); BLOOD UREA NITROGEN 12 mg/dL (7-20); CALCIUM 9.5 mg/dL (8.4-10.2); CARBON DIOXIDE 21 mmol/L (22-30); CHLORIDE 105 mmol/L (98-107); GLUCOSE 89 mg/dL (75-110); POTASSIUM 5.3 mmol/L (3.6-5.0)
[2018-11-09] MEDS: NORMAL SALINE 1000 ML 1,000 ML IV PRN ×2 (22:36→23:57)
[2018-11-09 22:46] LABS: APPEARANCE,URINE SLIGHTLY-CLOUDY; BILIRUBIN,URINE NEGATIVE (NEGATIVE); COLOR,URINE YELLOW; GLUCOSE, URINE NEGATIVE (NEGATIVE); KETONES,URINE NEGATIVE (NEGATIVE); LEUKOCYTE ESTERASE,URINE NEGATIVE (NEGATIVE); NITRITE,URINE NEGATIVE (NEGATIVE); PROTEIN,URINE 100 mg/dL (NEGATIVE); URINE SPECIFIC GRAVITY 1.013; UROBILINOGEN,URINE NEGATIVE mg/dL (<2.0)
--- NOTE | 2018-11-09 22:48 | RADIOLOGY REPORT (SQ) ---
XR CHEST 1 VIEW EXAM DATE: 11/09/2018 9:23 PM CDT HISTORY: Altered mental status, hypoxia. COMPARISON: 08/24/2015 FINDINGS: The heart size is within normal limits. No consolidation, pleural effusion, or pneumothorax is seen. The bony thorax is intact. IMPRESSION: No evidence of acute cardiopulmonary disease.
--- NOTE | 2018-11-09 22:50 | RADIOLOGY REPORT (SQ) ---
CT HEAD WITHOUT IV CONTRAST EXAM DATE: 11/09/2018 9:50 PM CDT HISTORY: Confusion. COMPARISON: None. TECHNIQUE: CT scan of the brain without IV contrast. This exam was performed according to our departmental dose-optimization program, which includes automated exposure control, adjustment of the mA and/or kV according to patient size and/or use of iterative reconstruction technique. FINDINGS: The ventricles, cisterns, and sulci are age-appropriate. No evidence of acute infarction, intracranial hemorrhage, extra-axial fluid collection, or midline shift. Mucosal thickening of the bilateral maxillary sinus with scattered secretions. No depressed skull fracture. IMPRESSION: 1. No acute intracranial findings. 2. Sinus mucosal inflammatory disease. Correlate for acute sinusitis.
[2018-11-09 23:03] LABS: URINE AMPHETAMINES SCREEN NEGATIVE; URINE BARBITURATES SCREEN NEGATIVE; URINE BENZODIAZEPINES SCREEN NEGATIVE; URINE COCAINE SCREEN UNCONFIRMED POSITIVE; URINE MARIJUANA (THC) SCREEN NEGATIVE; URINE METHADONE SCREEN NEGATIVE; URINE PHENCYCLIDINE SCREEN NEGATIVE
[2018-11-09] MEDS ORDERED: VANCOMYCIN HCL INJ 1000 MG VIAL IV ONE (23:45)
[2018-11-09] MEDS ORDERED: CEFTRIAXONE 1 GM/D5W RTU 1 GM/50 ML RTUPB IV ONE (23:59)
[2018-11-09] MEDS ORDERED: CEFTRIAXONE INJ 1000 MG VIAL IV ONE (23:59)
[2018-11-10] MEDS ORDERED: RINGERS SOLUTION,LACTATED 1,000 ML IV PRN (01:27)
[2018-11-10] MEDS ORDERED: ONDANSETRON HCL INJ/PF 4 MG/2 ML SDV IV PRN (01:27)
[2018-11-10] MEDS ORDERED: GLUCAGON,HUMAN RECOMB 1 MG INJ IM PRN (02:16)
[2018-11-10] MEDS ORDERED: DEXTROSE 40% GEL 15 GM TUBE PO PRN ×2 (02:16)
[2018-11-10] MEDS ORDERED: DEXTROSE 50%-WATER 25 GM/50 ML DISP.SYRIN IV PRN ×2 (02:16)
[2018-11-10 03:47] LABS: ARTERIAL BLOOD BASE EXCESS -3.3 mmol/L; ARTERIAL BLOOD FIO2 3L; ARTERIAL BLOOD H2CO3 1.55 mmol/L (1.05-1.35); ARTERIAL BLOOD HCO3 23.9 mmol/L (20-24); ARTERIAL BLOOD PCO2 51.4 mmHg (35-45); ARTERIAL BLOOD PH 7.29 (7.35-7.45); ARTERIAL BLOOD PO2 103.2 mmHg (80-100); ARTERIAL BLOOD TOTAL CO2 25.5 mmol/L (23-27)
[2018-11-10] MEDS ORDERED: INSULIN LISPRO 100 UNIT/ML 3 ML VIAL SUBCUT SCH (06:00)
--- NOTE | 2018-11-10 08:38 | PDOC PROGRESS REPORT ---
Subjective Progress Note for:: 11/10/18 Subjective:: he patient is presently fully alert and oriented. He is hungry and would like breakfast. He is a bit frustrated so he has been yelling out. He appears to be completely intact neurologically. His vitals are stable. In all likelihood thepatient will likely be discharged today. Reason For Visit: MULTIPLE DRUG INTOXICATION, tioxic encephalopathy, Hypothermia, hypotension. Physical Exam Vital Signs: Temp Pulse Resp BP Pulse Ox 98.2 F 79 17 106/77 100 11/10/18 03:10 11/10/18 03:10 11/10/18 03:10 11/10/18 03:10 11/10/18 03:22 Intake & Output 11/09/18 11/10/18 11/11/18 06:59 06:59 06:59 Intake Total 2000 Output Total 500 Balance 1500 Weight 82.6 kg Results Laboratory Results: 11/09/18 21:30 11/09/18 21:30 11/09/18 11/09/18 11/09/18 21:30 21:30 21:50 WBC 11.6 H RBC 4.87 Hgb 15.2 Hct 45.1 MCV 93 MCH 31.1 MCHC 33.6 RDW 14.0 Plt Count 300 Seg Neutrophils % 76.3 Carbonic Acid HCO3/H2CO3 Ratio ABG pH ABG pCO2 ABG pO2 ABG HCO3 ABG O2 Saturation ABG Base Excess VBG pH 7.10 L* VBG pCO2 64.3 H VBG HCO3 19.3 L VBG Base Excess -11.5 FiO2 Sodium 143.5 Potassium 5.3 H Chloride 105 Carbon Dioxide 21 L Anion Gap 18 BUN 12 Creatinine 1.90 H Est GFR ( Amer) 47 L Glucose 89 Lactic Acid Calcium 9.5 Urine Color Urine Appearance Urine pH Ur Specific [place] Urine Protein Urine Glucose (UA) Urine Ketones Urine Blood Urine Nitrite Ur Leukocyte Esterase Urine WBC (Auto) Urine RBC (Auto) 11/09/18 11/09/18 11/10/18 22:13 22:31 02:28 WBC RBC Hgb Hct MCV MCH MCHC RDW Plt Count Seg Neutrophils % Carbonic Acid HCO3/H2CO3 Ratio ABG pH ABG pCO2 ABG pO2 ABG HCO3 ABG O2 Saturation ABG Base Excess VBG pH VBG pCO2 VBG HCO3 VBG Base Excess FiO2 Sodium Potassium Chloride Carbon Dioxide Anion Gap BUN Creatinine Est GFR ( Amer) Glucose Lactic Acid 5.8 H 0.8 Calcium Urine Color YELLOW Urine Appearance SLIGHTLY-CLOUDY Urine pH 6.0 Ur Specific [place] 1.013 Urine Protein 100 H Urine Glucose (UA) NEGATIVE Urine Ketones NEGATIVE Urine Blood SMALL H Urine Nitrite NEGATIVE Ur Leukocyte Esterase NEGATIVE Urine WBC (Auto) 5 Urine RBC (Auto) 1 11/10/18 03:26 WBC RBC Hgb Hct MCV MCH MCHC RDW Plt Count Seg Neutrophils % Carbonic Acid 1.55 H HCO3/H2CO3 Ratio 15:1 ABG pH 7.29 L ABG pCO2 51.4 H ABG pO2 103.2 H ABG HCO3 23.9 ABG O2 Saturation 97.0 ABG Base Excess -3.3 VBG pH VBG pCO2 VBG HCO3 VBG Base Excess FiO2 3L Sodium Potassium Chloride Carbon Dioxide Anion Gap BUN Creatinine Est GFR ( Amer) Glucose Lactic Acid Calcium Urine Color Urine Appearance Urine pH Ur Specific [place] Urine Protein Urine Glucose (UA) Urine Ketones Urine Blood Urine Nitrite Ur Leukocyte Esterase Urine WBC (Auto) Urine RBC (Auto) 11/09/18 21:30 Creatine Kinase 257 H Impressions: Chest X-Ray 11/09/18 21:23 IMPRESSION: No evidence of acute cardiopulmonary disease. Head CT 11/09/18 21:50 IMPRESSION: 1. No acute intracranial findings. 2. Sinus mucosal inflammatory disease. Correlate for acute sinusitis. Assessment & Plan - Diagnosis (1) Polydrug abuse Is this a current diagnosis for this admission?: Yes Plan: The patient reportedly has history of drug abuse. His UDS was positive for opioids and cocaine. in addition nthere was odor of marijuana in his car and person. At times he appeared to be behaving as if he had sympathomimetic syndrome with agitation , brief myoclonus etc., as well as pinpoint pupilsds not responding to Narcan. The patient aquino d been likely using narcotics earlier in the evening as well. 11/10 The patient has apparently recovered his misadventure. He does not deny use of these drugs found in his sytem. (2) Acute kidney injury Is this a current diagnosis for this admission?: Yes (3) Altered mental status Qualifiers: Altered mental status type: delirium Qualified Code(s): R41.0 - Disorientation, unspecified Is this a current diagnosis for this admission?: Yes Plan: His altered mental status is likely multifactorial. it appeared to develop fairly suddenly in the wake of his drug use. His temperature and Bp took a bit of a roller coaster in the ED. The patient denied headache, photophobia , has no nausea and has no meningismus. he appears to be getting better neurologically as the the time has passed in the ED. He hasd= some CO2 narcosis on presentation likely narcotic related as well. The patient preportedly has bipolar diseases. unclear if he had been taking medication for it lately. The patient does have a histiory of HIV. Unclear at present time wheter he is on antio-retroviral therapy. I am inclined to believe at this time that the HIV is not germane to his presentaion. If the patient shows worsening in his overall neurological status we can consider performin an LP in the nextt few hours. the patient may require additional sedation to accomplish this. Innaddition there are numerous pscyhotropic drugs listed onhis home list that huseyin sahu have playerd a role in his rppresetation einclding Fexeril, Robaxin, remeron and tramadol 11/10 It asppears at this point that the mainissue was polydrug abuse. The patient appears to have recovered compleltely at this point. (4) Hx of human immunodeficiency virus infection Is this a current diagnosis for this admission?: Yes (5) Acidosis, metabolic, with respiratory acidosis Is this a current diagnosis for this admission?: Yes Plan: The patient appears to jhave presented with amixed acidosis. He presented with a an acute respiratory acidosios wiothj a PaCO2 of 64. However, the VBG was 7.1 yahaira ;lactate was elevarted suggesting a additional metabolic component.we will repeating hsi ABG 11/10 His respiratory acidosis has resolved. we are checking a BMP this AM. He is hemodynamically stable. He is afebbrile.
--- NOTE | 2018-11-10 08:49 | CRITICAL CARE ADMISSION REPORT ---
[facility] Date:: 11/10/18 Time:: 01:40 Reason for ICU Reason:: Altered mental status, hypotension. Mixed intoxicant abuse History obtained from:: Chart and ED physician - Diagnosis/Plan (3) Altered mental status Qualifiers: Altered mental status type: delirium Qualified Code(s): R41.0 - Diso rientation, unspecified Past Medical History Past Medical History: This patient has apparently been in the ED before for substance abuse issues. he wasapparently dropped off to the ED by some friends. There was apparently a heavy smell of marijuana emanating form the car a the time. The patient was fairly obtunded. The ED was jot led to jarvis that there had been any trauma. He presented normpothermic but became somewhat hypothermic during his stay in the ED. At present he is niormothermic on a MARIAJOSE Hugger. It appears that his mentation may have improved sionce arrivsal. he is following simple commands. he will close his eyes, move hsi feet and squeeze my hand on command Pulmonary Medical History: Reports: Asthma, Bronchitis, Pneumonia Neurological Medical History: Reports: Migraine Musculoskeltal Medical History: Reports: Arthritis Psychiatric Medical History: Reports: Bipolar Disorder, Depression Infectious Medical History: Reports: HIV Social/Family History - Social History Social History Note: Unknown social history Smoking Status: Current Every Day Smoker Cigarettes Packs Per Day: 1 Last Time Smoked: unknown Drugs: Cocaine, Heroin, Marijuana - Medication/Allergies Home Medications: Efavirenz/Emtricitab/Tenofovir [Atripla Tablet] 1 tab PO QHS 07/02/15 Mirtazapine [Remeron] 15 mg PO DAILY 07/02/15 Valacyclovir HCl [Valacyclovir] 500 mg PO DAILY 07/02/15 Ibuprofen [Motrin 600 Mg Tablet] 600 mg PO TID #30 tablet 08/07/15 Acyclovir [Zovirax 800 mg Tablet] 800 mg PO 5XD #50 tab 11/16/15 Hydrocodone/Acetaminophen [[place] 5-325 mg Tablet] 1 tab PO Q4 PRN #16 tablet 02/07/16 Ondansetron [Zofran Odt 4 mg Tablet] 1 tab PO Q4H PRN #15 tab.rapdis 02/07/16 Benzonatate [Tessalon Perles 100 mg Capsule] 100 mg PO Q8HP PRN #40 capsule 07/04/16 Hydrocodone/Acetaminophen [[place] 5-325 Tablet] 1 each PO Q4 PRN #20 tablet 07/28/16 Methocarbamol [Robaxin 750 mg Tablet] 750 mg PO ASDIR PRN #40 tablet 07/28/16 Tramadol HCl 50 mg PO Q4 PRN #20 tablet 07/30/16 Dicyclomine HCl [Bentyl 20 mg Tablet] 20 mg PO QID #30 tablet 06/11/17 Ondansetron [Zofran Odt] 4 mg PO Q6 PRN #30 tab.rapdis 06/11/17 Azithromycin [Zithromax 250 mg Tablet] 250 mg PO ASDIR PRN #6 tablet 07/05/17 Ibuprofen [Motrin 600 Mg Tablet] 600 mg PO TID #15 tablet 07/31/17 Ibuprofen [Motrin 600 Mg Tablet] 600 mg PO TID #15 tablet 09/18/17 Albuterol Sulfate [Proair Hfa Inhalation Aerosol 8.5 gm Mdi] 2 puff IH Q4 PRN #1 mdi 09/06/18 Cyclobenzaprine HCl [Flexeril 10 Mg Tablet] 10 mg PO TID #15 tablet 09/06/18 Inhaler,Assist Device,Accesory [Optichamber] 1 each MC Q4 PRN #1 each 09/06/18 Prednisone [Deltasone 10 mg Tablet] 10 mg PO ASDIR PRN #21 tablet 09/06/18 Allergies/Adverse Reactions: No Known Allergies Allergy (Verified 11/09/18 21:19) Review of Systems ROS unobtainable: Due to mental status - The poatient is able to follow simple commands but ncapable of providing ROS Physical Exam Vital Signs: Temp Pulse Resp BP Pulse Ox 94.8 F L 115 H 13 109/62 96 11/10/18 00:45 11/09/18 21:47 11/10/18 00:45 11/10/18 00:45 11/10/18 00:45 Intake & Output 11/08/18 11/09/18 11/10/18 06:59 06:59 06:59 Intake Total 1000 Balance 1000 Weight 81.647 kg Weight/Height Weight 81.647 kg Height 5 ft 10 in General appearance: PRESENT: no acute distress Exam: He is sedated but arouses fairly easily at this time Head exam: PRESENT: atraumatic, normocephalic Eye exam: PRESENT: conjunctiva pink, PERRLA - Pupils presently 2-3mmm and rective. ABSENT: nystagmus Cardiovascular exam: PRESENT: RRR, +S1, +S2 Pulses: PRESENT: +1 pedal pulses bilateral GI/Abdominal exam: PRESENT: normal bowel sounds, soft Rectal exam: PRESENT: deferred Extremities exam: PRESENT: full ROM Neurological exam: PRESENT: awake - The patient arouses. he appears capable of moving all extremities. He was apparently having some myoclonic jerks ealrier but not since i have seen him. he hhad been intermuittently agitated earlier as well but is now sedatee and not moving too much, oriented to person, oriented to place, oriented to time, oriented to situation, CN II-XII grossly intact. ABSENT: motor sensory deficit Laboratory/Radiographs Laboratory Results: 11/09/18 21:30 11/09/18 21:30 11/09/18 11/09/18 11/09/18 21:30 21:30 21:50 WBC 11.6 H RBC 4.87 Hgb 15.2 Hct 45.1 MCV 93 MCH 31.1 MCHC 33.6 RDW 14.0 Plt Count 300 Seg Neutrophils % 76.3 VBG pH 7.10 L* VBG pCO2 64.3 H VBG HCO3 19.3 L VBG Base Excess -11.5 Sodium 143.5 Potassium 5.3 H Chloride 105 Carbon Dioxide 21 L Anion Gap 18 BUN 12 Creatinine 1.90 H Est GFR ( Amer) 47 L Glucose 89 Lactic Acid Calcium 9.5 Urine Color Urine Appearance Urine pH Ur Specific Rule Urine Protein Urine Glucose (UA) Urine Ketones Urine Blood Urine Nitrite Ur Leukocyte Esterase Urine WBC (Auto) Urine RBC (Auto) 11/09/18 11/09/18 22:13 22:31 WBC RBC Hgb Hct MCV MCH MCHC RDW Plt Count Seg Neutrophils % VBG pH VBG pCO2 VBG HCO3 VBG Base Excess Sodium Potassium Chloride Carbon Dioxide Anion Gap BUN Creatinine Est GFR ( Amer) Glucose Lactic Acid 5.8 H Calcium Urine Color YELLOW Urine Appearance SLIGHTLY-CLOUDY Urine pH 6.0 Ur Specific Rule 1.013 Urine Protein 100 H Urine Glucose (UA) NEGATIVE Urine Ketones NEGATIVE Urine Blood SMALL H Urine Nitrite NEGATIVE Ur Leukocyte Esterase NEGATIVE Urine WBC (Auto) 5 Urine RBC (Auto) 1 11/09/18 21:30 Creatine Kinase 257 H Impressions: Chest X-Ray 11/09/18 21:23 IMPRESSION: No evidence of acute cardiopulmonary disease. Head CT 11/09/18 21:50 IMPRESSION: 1. No acute intracranial findings. 2. Sinus mucosal inflammatory disease. Correlate for acute sinusitis. Critical Time -: The care of a critically ill patient is dynamic. This note represents a static moment in the admission process. orders and treatments may be given simulataneously and urgentl, and time is not labor service representative of the treatment process. This patient requires Critical Care secondary to life threating organ or limb dysfunction. Without the need for Critical Care services, the patient is at risk for increasid mortality and morbidity. Assessment & Plan - Diagnosis (1) Polydrug abuse Is this a current diagnosis for this admission?: Yes Plan: The patient reportedly has history of drug abuse. His UDS was positive for opioids and cocaine. in addition nthere was odor of marijuana in his car and person. At times he appeared to be behaving as if he had sympathomimetic syndrome with agitation , brief myoclonus etc., as well as pinpoint pupilsds not responding to Narcan. The patient aquino d been likely using narcotics earlier in the evening as well. (2) Acute kidney injury Is this a current diagnosis for this admission?: Yes Plan: The patient had normal kidney fn. as late as 8 days ago. His creatinine was under 1. It is now 1.90 The patient has been resucitated with 2-3 liters of IV fluid with improvement in his bp ad appearance. (3) Altered mental status Qualifiers: Altered mental status type: delirium Qualified Code(s): R41.0 - Disorientation, unspecified Is this a current diagnosis for this admission?: Yes Plan: His altered mental status is likely multifactorial. it appeared to develop fairly suddenly in the wake of his drug use. His temperature and Bp took a bit of a roller coaster in the ED. The patient denied headache, photophobia , has no nausea and has no meningismus. he appears to be getting better neurologically as the the time has passed in the ED. He hasd= some CO2 narcosis on presentation likely narcotic related as well. The patient preportedly has bipolar diseases. unclear if he had been taking medication for it lately. The patient does have a histiory of HIV. Unclear at present time wheter he is on antio-retroviral therapy. I am inclined to believe at this time that the HIV is not germane to his presentaion. If the patient shows worsening in his overall neurological status we can consider performin an LP in the nextt few hours. the patient may require additional sedation to accomplish this. Innaddition there are numerous pscyhotropic drugs listed onhis home list that may have playerd a role in his rppresetation einclding Fexeril, Robaxin, remeron and tramadol (4) Hx of human immunodeficiency virus infection Is this a current diagnosis for this admission?: Yes Plan: Patient unable to furnish additional information regarding possible SAIDS related illnesses. Atriplea was included amonst his home med reconciliation. The patient has been started empirically on Rocephin and Vanco given a piossible SIrs/Sepsis syndrome (5) Acidosis, metabolic, with respiratory acidosis Is this a current diagnosis for this admission?: Yes Plan: The patient appears to darlene presented with amixed acidosis. He presented with a an acute respiratory acidosios wiothj a PaCO2 of 64. However, the VBG was 7.1 yahaira ;lactate was elevarted suggesting a additional metabolic component.we will repeating hsi ABG
--- NOTE | 2018-11-10 09:25 | EKG REPORT ---
SEVERITY:- OTHERWISE NORMAL ECG - SINUS TACHYCARDIA : Confirmed by: Rosmery Hammond MD 10-Nov-2018 09:24:50
[2018-11-10 09:36] LABS: ABSOLUTE MONOCYTES (AUTO) 0.4 10^3/uL (0.1-1.4); ABSOLUTE NEUT (AUTO) 6.8 10^3/uL (1.7-8.2); BASOPHILS % (AUTO) 0.4 % (0-2); EOSINOPHILS % (AUTO) 0.1 % (0-6); HEMATOCRIT 38.2 % (37.9-51.0); LYMPHOCYTES % (AUTO) 21.9 % (13-45); MEAN CORPUSCULAR HEMOGLOBIN 30.7 pg (27.0-33.4); MEAN CORPUSCULAR VOLUME 90 fl (80-97); MONOCYTES % (AUTO) 4.3 % (3-13); PLATELET COUNT 232 10^3/uL (150-450); RED BLOOD COUNT 4.23 10^6/uL (4.35-5.55); RED CELL DISTRIBUTION WIDTH 13.7 % (11.5-14.0); SEGMENTED NEUTROPHILS % (AUTO) 73.3 % (42-78); TOTAL CELLS COUNTED % (AUTO) 100 %; WHITE BLOOD COUNT 9.3 10^3/uL (4.0-10.5)
[2018-11-10 09:57] LABS: ANION GAP 6 (5-19); BLOOD UREA NITROGEN 18 mg/dL (7-20); CALCIUM 8.5 mg/dL (8.4-10.2); CARBON DIOXIDE 27 mmol/L (22-30); CHLORIDE 103 mmol/L (98-107); GLUCOSE 133 mg/dL (75-110)
[2018-11-10 09:58] LABS: POTASSIUM 4.3 mmol/L (3.6-5.0)
[2018-11-10] MEDS ORDERED: ENOXAPARIN SODIUM INJ 30 MG/0.3 ML DISP.SYRIN SUBCUT SCH (10:00)
[2018-11-10 12:32] VITALS: BP 120/69
[2018-11-10 12:33] LABS: VANCOMYCIN,TROUGH 5.8 ug/mL (5.0-20.0)
== END 2018-11-10 13:25 | disposition home or self-care (01) | DRG 917 ==
LOC: ER 21:14 → EH 11-10 01:37 → ICU 11-10 02:52
PROVIDERS: ADMIT Internal Medicine; ATTEND Internal Medicine
DX: T40.5X1A Poisoning by cocaine, accidental (unintentional), initial encounter (principal); G92 Toxic encephalopathy; N17.9 Acute kidney failure, unspecified; E87.4 Mixed disorder of acid-base balance; T40.1X1A Poisoning by heroin, accidental (unintentional), initial encounter; T40.7X1A Poisoning by cannabis (derivatives), accidental (unintentional), initial encounter; R41.0 Disorientation, unspecified; Y92.9 Unspecified place or not applicable; F31.9 Bipolar disorder, unspecified; Z21 Asymptomatic human immunodeficiency virus [HIV] infection status; I95.9 Hypotension, unspecified; G89.29 Other chronic pain; M54.9 Dorsalgia, unspecified; F17.210 Nicotine dependence, cigarettes, uncomplicated; Z79.899 Other long term (current) drug therapy; Z79.52 Long term (current) use of systemic steroids
CPT/HCPCS: 36415; 36600; 70450; 71045; 80048; 80202; 80307; 81001; 82550; 82803; 82962; 83605; 85025; 87040; 93005; 93010; 96361; 96374; 99291; J0696; J2310; J3370; J7030

== ENCOUNTER 2020-02-11 11:51 | Inpatient (IN) | payer MEDICARE, MEDICAID ==
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
[2020-02-11] MEDS ORDERED: DIPHENHYDRAMINE HCL 50 MG/ML VIAL IV ONE (12:41)
[2020-02-11] MEDS ORDERED: LORAZEPAM INJ 2 MG/1 ML VIAL IV ONE (12:41)
[2020-02-11] MEDS ORDERED: HALOPERIDOL LACTATE INJ 5 MG/1 ML VIAL IV ONE (12:42)
--- NOTE | 2020-02-11 13:17 | PSYCHOLOGICAL NOTE ---
Psych Note - Psych Note Date seen by psych provider: 02/11/20 Time seen by psych provider: 13:20 Psych Note: Reason for Consult: AMS/ Drug Abuse Patient is currently acutely psychotic due to probable ACID/LSD intoxication. In an effort from medical staff to control the patient's acute presentation, he was administered multiple medications and needed 4 point restraints. Given the brief time from medication administration, scheduled psychiatric medications to address psychosis are not recommended at this time by the psychiatric team. Once the effects of the initial administered medications have subsided, it would be anticipated the patient would benefit from longer acting psychiatric medications that match the slow release characteristics of LSD ie first generation anti-psychotics at minimal to moderate dosing: Thorazine, Prolixin, Etc. Impression/Plan: Patient is recommended for 24 hour petitioning for evaluation; paperwork is signed and placed in patient's chart. Patient is under the influence of an unknown substance; possibly LSD. His cognitive functioning is impaired. Evaluation is ongoing. Dr. Duval was consulted on the care and management of this patient; attending physician is in agreement with recommendations and disposition.
[2020-02-11 13:21] LABS: HEMATOCRIT 46.9 % (37.9-51.0); HEMOGLOBIN 15.8 g/dL (13.5-17.0); MEAN CORPUSCULAR HGB CONC 33.6 g/dL (32.0-36.0); MEAN CORPUSCULAR VOLUME 95 fl (80-97); PLATELET COUNT 265 10^3/uL (150-450); RED BLOOD COUNT 4.94 10^6/uL (4.35-5.55); RED CELL DISTRIBUTION WIDTH 12.9 % (11.5-14.0); WHITE BLOOD COUNT 22.2 10^3/uL (4.0-10.5)
[2020-02-11 13:37] LABS: ALBUMIN 5.2 g/dL (3.5-5.0); ALKALINE PHOSPHATASE 94 U/L (38-126); ASPARTATE AMINO TRANSFERASE 67 U/L (17-59); BILIRUBIN,DIRECT 0.3 mg/dL (0.0-0.4); BILIRUBIN,TOTAL 0.9 mg/dL (0.2-1.3); BLOOD UREA NITROGEN 22 mg/dL (7-20); CALCIUM 10.3 mg/dL (8.4-10.2); GLUCOSE 108 mg/dL (75-110); POTASSIUM 3.8 mmol/L (3.6-5.0); TOTAL PROTEIN 9.1 g/dL (6.3-8.2)
[2020-02-11 13:40] LABS: ABSOLUTE LYMPHOCYTES# (MANUAL) 6.2 10^3/uL (0.5-4.7); ABSOLUTE MONOCYTES # (MANUAL) 1.3 10^3/uL (0.1-1.4); BASOPHILS % (MANUAL) 0 % (0-2); EOSINOPHILS % (MANUAL) 0 % (0-6); LYMPHOCYTES % (MANUAL) 28 % (13-45); MONOCYTES % (MANUAL) 6 % (3-13); SEGMENTED NEUTROPHILS % (MAN) 66 % (42-78); TOTAL CELLS COUNTED 100
[2020-02-11 13:41] LABS: PLATELET COMMENT ADEQUATE; RBC MORPHOLOGY COMMENT NORMO-CYTIC/CHROMIC
[2020-02-11 13:42] LABS: CHLORIDE 109 mmol/L (98-107)
[2020-02-11 13:46] LABS: ACETAMINOPHEN < 10 ug/mL (10-30); ALCOHOL < 10 mg/dL (NONE DETECTED); ANION GAP 31 (5-19); SALICYLATE < 1.0 mg/dL (2.0-20.0)
[2020-02-11 13:48] LABS: CARBON DIOXIDE 9 mmol/L (22-30)
[2020-02-11 13:53] LABS: APPEARANCE,URINE SLIGHTLY-CLOUDY; BILIRUBIN,URINE NEGATIVE (NEGATIVE); COLOR,URINE AMBER; GLUCOSE, URINE NEGATIVE (NEGATIVE); KETONES,URINE NEGATIVE (NEGATIVE); LEUKOCYTE ESTERASE,URINE NEGATIVE (NEGATIVE); NITRITE,URINE NEGATIVE (NEGATIVE); PROTEIN,URINE >=500 mg/dL (NEGATIVE)
[2020-02-11] MEDS ORDERED: NORMAL SALINE 1000 ML 1,000 ML IV ONE ×4 (13:57→23:32)
[2020-02-11 14:08] LABS: URINE BARBITURATES SCREEN NEGATIVE; URINE BENZODIAZEPINES SCREEN NEGATIVE; URINE MARIJUANA (THC) SCREEN NEGATIVE; URINE METHADONE SCREEN NEGATIVE; URINE PHENCYCLIDINE SCREEN NEGATIVE
[2020-02-11 14:14] LABS: URINE COCAINE SCREEN UNCONFIRMED POSITIVE
--- NOTE | 2020-02-11 14:31 | RADIOLOGY REPORT (SQ) ---
EXAM DESCRIPTION: CHEST SINGLE VIEW IMAGES COMPLETED DATE/TIME: 02/11/2020 2:14 pm REASON FOR STUDY: hypocapnia COMPARISON: Chest radiographs 11/09/2018. EXAM PARAMETERS: NUMBER OF VIEWS: One view. TECHNIQUE: Single frontal radiographic view of the chest acquired. RADIATION DOSE: NA LIMITATIONS: None. FINDINGS: LUNGS AND PLEURA: No opacities, masses or pneumothorax. No pleural effusion. MEDIASTINUM AND HILAR STRUCTURES: No masses. Contour normal. HEART AND VASCULAR STRUCTURES: Heart normal in size. Normal vasculature. BONES: No acute findings. HARDWARE: None in the chest. OTHER: No other significant finding. IMPRESSION: NO ACUTE RADIOGRAPHIC FINDING IN THE CHEST. TECHNICAL DOCUMENTATION: JOB ID: [id number] 2010 [employer]- All Rights Reserved Reading location - IP/workstation name: [email or web address]
[2020-02-11 15:15] LABS: ARTERIAL BLOOD BASE EXCESS -3.5 mmol/L; ARTERIAL BLOOD FIO2 36%; ARTERIAL BLOOD H2CO3 1.21 mmol/L (1.05-1.35); ARTERIAL BLOOD HCO3 21.8 mmol/L (20-24); ARTERIAL BLOOD O2 SATURATION 97.5 % (94-98); ARTERIAL BLOOD PCO2 40.2 mmHg (35-45); ARTERIAL BLOOD PH 7.35 (7.35-7.45); ARTERIAL BLOOD PO2 103.4 mmHg (80-100)
[2020-02-11] MEDS ORDERED: CHLORPROMAZINE HCL INJ 25 MG/1 ML AMPULE IV ONE (16:43)
[2020-02-11] MEDS ORDERED: BENZTROPINE MESYLATE INJ 2 MG/2 ML AMPULE IV ONE (16:44)
[2020-02-11 21:19] LABS: ABSOLUTE LYMPHOCYTES (AUTO) 1.7 10^3/uL (0.5-4.7); ABSOLUTE NEUT (AUTO) 9.4 10^3/uL (1.7-8.2); BASOPHILS % (AUTO) 0.1 % (0-2); HEMATOCRIT 44.9 % (37.9-51.0); HEMOGLOBIN 15.3 g/dL (13.5-17.0); LYMPHOCYTES % (AUTO) 13.9 % (13-45); MEAN CORPUSCULAR HEMOGLOBIN 31.3 pg (27.0-33.4); MEAN CORPUSCULAR VOLUME 92 fl (80-97); MONOCYTES % (AUTO) 8.5 % (3-13); PLATELET COUNT 218 10^3/uL (150-450); RED BLOOD COUNT 4.88 10^6/uL (4.35-5.55); RED CELL DISTRIBUTION WIDTH 12.8 % (11.5-14.0); SEGMENTED NEUTROPHILS % (AUTO) 77.5 % (42-78); TOTAL CELLS COUNTED % (AUTO) 100 %; WHITE BLOOD COUNT 12.1 10^3/uL (4.0-10.5)
[2020-02-11 22:53] LABS: ALBUMIN 4.5 g/dL (3.5-5.0); ALKALINE PHOSPHATASE 91 U/L (38-126); ANION GAP 11 (5-19); ASPARTATE AMINO TRANSFERASE 165 U/L (17-59); BILIRUBIN,DIRECT 0.2 mg/dL (0.0-0.4); BILIRUBIN,TOTAL 0.8 mg/dL (0.2-1.3); BLOOD UREA NITROGEN 32 mg/dL (7-20); CALCIUM 8.9 mg/dL (8.4-10.2); CHLORIDE 109 mmol/L (98-107); GLUCOSE 90 mg/dL (75-110)
[2020-02-11 23:15] LABS: CARBON DIOXIDE 21 mmol/L (22-30); POTASSIUM 5.3 mmol/L (3.6-5.0)
[2020-02-11 23:29] LABS: CREATINE KINASE 11982 U/L (55-170)
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
[2020-02-12] MEDS ORDERED: SODIUM BICARBONATE 8.4% INJ 50 MEQ/50 ML DISP.SYRIN ONE ×2 (03:51→03:56)
[2020-02-12] MEDS: DEXTROSE 5%-WATER 1000 ML 1,000 ML with SODIUM BICARBONATE 100 MEQ IV PRN ×8 (04:14→21:06)
[2020-02-12] MEDS: HEPARIN SOD (PORCINE) 5,000 UNIT/ML 1 ML VIAL SUBCUT SCH ×3 (06:56→21:00)
[2020-02-12 11:53] LABS: ABSOLUTE LYMPHOCYTES (AUTO) 1.7 10^3/uL (0.5-4.7); ABSOLUTE MONOCYTES (AUTO) 0.7 10^3/uL (0.1-1.4); ABSOLUTE NEUT (AUTO) 5.2 10^3/uL (1.7-8.2); BASOPHILS % (AUTO) 0.5 % (0-2); EOSINOPHILS % (AUTO) 0.4 % (0-6); HEMATOCRIT 38.6 % (37.9-51.0); HEMOGLOBIN 13.5 g/dL (13.5-17.0); LYMPHOCYTES % (AUTO) 21.9 % (13-45); MEAN CORPUSCULAR HEMOGLOBIN 31.7 pg (27.0-33.4); MEAN CORPUSCULAR HGB CONC 34.9 g/dL (32.0-36.0); MEAN CORPUSCULAR VOLUME 91 fl (80-97); MONOCYTES % (AUTO) 9.5 % (3-13); PLATELET COUNT 181 10^3/uL (150-450); RED BLOOD COUNT 4.26 10^6/uL (4.35-5.55); RED CELL DISTRIBUTION WIDTH 12.9 % (11.5-14.0); SEGMENTED NEUTROPHILS % (AUTO) 67.7 % (42-78); TOTAL CELLS COUNTED % (AUTO) 100 %; WHITE BLOOD COUNT 7.7 10^3/uL (4.0-10.5)
[2020-02-12 12:14] LABS: ALBUMIN 3.1 g/dL (3.5-5.0); ALKALINE PHOSPHATASE 70 U/L (38-126); ANION GAP 9 (5-19); ASPARTATE AMINO TRANSFERASE 406 U/L (17-59); BILIRUBIN,DIRECT 0.1 mg/dL (0.0-0.4); BILIRUBIN,TOTAL 0.5 mg/dL (0.2-1.3); BLOOD UREA NITROGEN 36 mg/dL (7-20); CALCIUM 8.1 mg/dL (8.4-10.2); CARBON DIOXIDE 21 mmol/L (22-30); CHLORIDE 105 mmol/L (98-107); GLUCOSE 117 mg/dL (75-110)
[2020-02-12 12:25] LABS: POTASSIUM 3.7 mmol/L (3.6-5.0)
[2020-02-12 13:14] LABS: CREATINE KINASE 37597 U/L (55-170)
--- NOTE | 2020-02-12 13:23 | PDOC PROGRESS REPORT ---
Subjective Date:: 02/12/20 Subjective:: The patient is a 44-year-old male with a past medical history significant for asthma, bipolar disorder, depression, schizoaffective disorder, HIV, obesity, and substance abuse who was admitted 02/12/2020 with Acute kidney injury secondary to rhabdomyolysis and polysubstance abuse. Patient was seen on morning rounds. He was found resting in bed, comfortably, on room air. He is alert and oriented x4, although with continued odd statements. He is calm and cooperative at this time, though does occasionally continue to decline nursing interventions (vital signs, lab draws). He reports generalized muscle aches. Patient denies all symptoms; specifically denies fever, chills, chest pain, palpitations, dyspnea, orthopnea, cough, abdominal pain, nausea, vomiting, diarrhea. He has no other questions or concerns. No concerns per nursing. Reason For Visit: METHAMPHETAMINE ABUSE,COCAINE ABUSE,ACUTE PSYCHOSI Physical Exam Vital Signs: Temp Pulse Resp BP Pulse Ox 98.3 F 69 20 130/80 H 93 02/12/20 10:00 02/12/20 08:34 02/12/20 08:34 02/12/20 08:34 02/12/20 08:34 Intake & Output 02/11/20 02/12/20 02/13/20 06:59 06:59 06:59 Intake Total 4000 1340 Output Total 450 750 Balance 3550 590 Weight 111.6 kg General appearance: PRESENT: no acute distress, obese, well-developed, well- nourished Head exam: PRESENT: atraumatic, normocephalic Eye exam: PRESENT: conjunctiva pink, EOMI, PERRLA. ABSENT: scleral icterus Mouth exam: PRESENT: moist, tongue midline Respiratory exam: PRESENT: clear to auscultation merlin, symmetrical, unlabored, other - room air. ABSENT: rales, rhonchi, wheezes Cardiovascular exam: PRESENT: RRR. ABSENT: diastolic murmur, rubs, systolic murmur Pulses: PRESENT: normal dorsalis pedis pul Vascular exam: PRESENT: normal capillary refill Extremities exam: PRESENT: full ROM. ABSENT: calf tenderness, clubbing, pedal edema Neurological exam: PRESENT: alert, awake, oriented to person, oriented to place, oriented to time, oriented to situation, CN II-XII grossly intact. ABSENT: motor sensory deficit Psychiatric exam: PRESENT: normal mood, unusual affect. ABSENT: homicidal ideation, suicidal ideation Focused psych exam: PRESENT: other - occasional odd statements Skin exam: PRESENT: dry, intact, warm. ABSENT: cyanosis, rash Results Laboratory Results: 02/12/20 10:14 02/12/20 10:14 02/11/20 02/11/20 02/11/20 13:06 13:06 13:20 WBC 22.2 H RBC 4.94 Hgb 15.8 Hct 46.9 MCV 95 MCH 32.0 MCHC 33.6 RDW 12.9 Plt Count 265 Seg Neutrophils % Not Reportable Carbonic Acid HCO3/H2CO3 Ratio ABG pH ABG pCO2 ABG pO2 ABG HCO3 ABG O2 Saturation ABG Base Excess FiO2 Sodium 149.4 H Potassium 3.8 Chloride 109 H Carbon Dioxide 9 L* Anion Gap 31 H BUN 22 H Creatinine 2.62 H Est GFR ( Amer) 32 L Glucose 108 Calcium 10.3 H Magnesium Total Bilirubin 0.9 AST 67 H Alkaline Phosphatase 94 Total Protein 9.1 H Albumin 5.2 H Urine Color HERBERT Urine Appearance SLIGHTLY-CLOUDY Urine pH 5.0 Ur Specific [place] 1.030 Urine Protein >=500 H Urine Glucose (UA) NEGATIVE Urine Ketones NEGATIVE Urine Blood NEGATIVE Urine Nitrite NEGATIVE Ur Leukocyte Esterase NEGATIVE Urine WBC (Auto) 2 Urine RBC (Auto) 2 02/11/20 02/11/20 02/11/20 14:55 20:55 20:55 WBC 12.1 H RBC 4.88 Hgb 15.3 Hct 44.9 MCV 92 MCH 31.3 MCHC 34.0 RDW 12.8 Plt Count 218 Seg Neutrophils % 77.5 Carbonic Acid 1.21 HCO3/H2CO3 Ratio 18:1 ABG pH 7.35 ABG pCO2 40.2 ABG pO2 103.4 H ABG HCO3 21.8 ABG O2 Saturation 97.5 ABG Base Excess -3.5 FiO2 36% Sodium 141.4 Potassium 5.3 H D Chloride 109 H Carbon Dioxide 21 L D Anion Gap 11 BUN 32 H Creatinine 2.81 H Est GFR ( Amer) 30 L Glucose 90 Calcium 8.9 Magnesium Total Bilirubin 0.8 AST 165 H Alkaline Phosphatase 91 Total Protein 8.0 Albumin 4.5 Urine Color Urine Appearance Urine pH Ur Specific [place] Urine Protein Urine Glucose (UA) Urine Ketones Urine Blood Urine Nitrite Ur Leukocyte Esterase Urine WBC (Auto) Urine RBC (Auto) 02/12/20 02/12/20 10:14 10:14 WBC 7.7 RBC 4.26 L Hgb 13.5 Hct 38.6 MCV 91 MCH 31.7 MCHC 34.9 RDW 12.9 Plt Count 181 Seg Neutrophils % 67.7 Carbonic Acid HCO3/H2CO3 Ratio ABG pH ABG pCO2 ABG pO2 ABG HCO3 ABG O2 Saturation ABG Base Excess FiO2 Sodium 135.3 L Potassium 3.7 D Chloride 105 Carbon Dioxide 21 L Anion Gap 9 BUN 36 H Creatinine 3.28 H Est GFR ( Amer) 25 L Glucose 117 H Calcium 8.1 L Magnesium 3.0 H Total Bilirubin 0.5 AST 406 H Alkaline Phosphatase 70 Total Protein 6.0 L Albumin 3.1 L Urine Color Urine Appearance Urine pH Ur Specific [place] Urine Protein Urine Glucose (UA) Urine Ketones Urine Blood Urine Nitrite Ur Leukocyte Esterase Urine WBC (Auto) Urine RBC (Auto) 02/11/20 20:55 Creatine Kinase 01866 H Impressions: Chest X-Ray 02/11/20 13:58 IMPRESSION: NO ACUTE RADIOGRAPHIC FINDING IN THE CHEST. Assessment and Plan - Diagnosis (1) Acute kidney injury Is this a current diagnosis for this admission?: Yes Plan: Secondary to exogenous substances and rhabdomyolysis. Patient is admitted to [facility] on continuous telemetry. Continue generous IVF w/ NS at 200 mls/hr and Bicarb drip at 100 mls/hr Strict I&Os Serial chemistries. Low threshold for nephrology consultation. (2) Rhabdomyolysis Qualifiers: Rhabdomyolysis type: non-traumatic Qualified Code(s): M62.82 - Rhabdomyolysis Is this a current diagnosis for this admission?: Yes Plan: Secondary to cocaine and amphetamine use. Likely worsened secondary to muscle straining against restraints overnight. Now reporting generalized muscle aches. Renal function is worsening; CR increased to 3.28. CK 11,982-> 39601. He is receiving generous hydration; start NS at 200ml/hrs Continue Bicarb drip at 100 mls/hr. Follow up chemistry and CK. (3) Acute psychosis Is this a current diagnosis for this admission?: Yes Plan: Significantly better; now A&Ox4, though with continued occasional odd statements. The patient is calm and cooperative. Mental health consulted; he is under 24-hour commitment. (4) Polysubstance abuse Is this a current diagnosis for this admission?: Yes Plan: He is using cocaine and methamphetamine. Reports that he also used LSD or similar substance. Mental health consulted. Avoid beta blockers. Supportive care. (5) Body aches Is this a current diagnosis for this admission?: Yes Plan: Secondary to all of the above. Will trial Lidoderm patches. Flexeril prn muscle spasms. Avoiding tylenol and NSAIDS at this time r/t worsening renal function and upward trend in LFTs. (6) Hx of human immunodeficiency virus infection Is this a current diagnosis for this admission?: Yes Plan: Currently on Atripla Holding secondary to TAN (not recommended for CrCl <50ml/min). - Time Time Spent with patient: 25-34 minutes Medications reviewed and adjusted accordingly: Yes Anticipated Discharge Disposition: Home, Self Care - pending mental health clearance. Anticipated Discharge Timeframe: TBD
[2020-02-12] MEDS ORDERED: LIDOCAINE 5% (700 MG) TRANSDERMAL ADH..PATCH TP ONE (14:00)
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
[2020-02-12 14:28] LABS: ANION GAP 9 (5-19); BLOOD UREA NITROGEN 35 mg/dL (7-20); CALCIUM 8.2 mg/dL (8.4-10.2); CARBON DIOXIDE 24 mmol/L (22-30); CHLORIDE 105 mmol/L (98-107); GLUCOSE 122 mg/dL (75-110); POTASSIUM 3.6 mmol/L (3.6-5.0)
[2020-02-12] MEDS: NORMAL SALINE 1000 ML 1,000 ML IV PRN ×2 (15:31→21:07)
[2020-02-12] MEDS: CYCLOBENZAPRINE HCL 10 MG TABLET PO PRN (19:41)
[2020-02-12] MEDS ORDERED: CHLORPROMAZINE HCL INJ 25 MG/1 ML AMPULE ONE (21:11)
[2020-02-12] MEDS: CHLORPROMAZINE HCL INJ 25 MG/1 ML AMPULE IV PRN (21:23)
[2020-02-12 22:23] LABS: ANION GAP 6 (5-19); BLOOD UREA NITROGEN 36 mg/dL (7-20); CARBON DIOXIDE 26 mmol/L (22-30); CHLORIDE 106 mmol/L (98-107); GLUCOSE 113 mg/dL (75-110); POTASSIUM 3.5 mmol/L (3.6-5.0)
[2020-02-12 23:30] LABS: CREATINE KINASE 44468 U/L (55-170)
--- NOTE | 2020-02-13 00:21 | EKG REPORT ---
SEVERITY:- ABNORMAL ECG - SINUS TACHYCARDIA PROLONGED QT INTERVAL : Confirmed by: Marek Gross 13-Feb-2020 00:20:41
[2020-02-13] MEDS: HEPARIN SOD (PORCINE) 5,000 UNIT/ML 1 ML VIAL SUBCUT SCH ×3 (05:43→21:54)
[2020-02-13 06:51] LABS: HEMATOCRIT 36.9 % (37.9-51.0); HEMOGLOBIN 12.9 g/dL (13.5-17.0); MEAN CORPUSCULAR HEMOGLOBIN 31.5 pg (27.0-33.4); MEAN CORPUSCULAR HGB CONC 34.8 g/dL (32.0-36.0); MEAN CORPUSCULAR VOLUME 91 fl (80-97); PLATELET COUNT 166 10^3/uL (150-450); RED BLOOD COUNT 4.08 10^6/uL (4.35-5.55); RED CELL DISTRIBUTION WIDTH 12.7 % (11.5-14.0); WHITE BLOOD COUNT 6.1 10^3/uL (4.0-10.5)
[2020-02-13 07:17] LABS: BLOOD UREA NITROGEN 28 mg/dL (7-20); GLUCOSE 120 mg/dL (75-110); POTASSIUM 3.5 mmol/L (3.6-5.0)
[2020-02-13 07:23] LABS: CARBON DIOXIDE 26 mmol/L (22-30); CHLORIDE 109 mmol/L (98-107)
[2020-02-13 07:29] LABS: ANION GAP 4 (5-19)
[2020-02-13] MEDS: DEXTROSE 5%-WATER 1000 ML 1,000 ML with SODIUM BICARBONATE 100 MEQ IV PRN ×2 (08:53)
[2020-02-13] MEDS: NORMAL SALINE 1000 ML 1,000 ML IV PRN ×3 (08:56→23:30)
[2020-02-13 10:30] LABS: CREATINE KINASE 39477 U/L (55-170)
--- NOTE | 2020-02-13 13:05 | PDOC PROGRESS REPORT ---
Subjective Date:: 02/13/20 Subjective:: The patient is a 44-year-old male with a past medical history significant for asthma, bipolar disorder, depression, schizoaffective disorder, HIV, obesity, and substance abuse who was admitted 02/12/2020 with Acute kidney injury secondary to rhabdomyolysis and polysubstance abuse. Patient was seen on morning rounds. He was found resting in bed, comfortably, on room air. A&O x4. He is calm and cooperative; expresses appreciation for his care. He reports generalized muscle aches,. Patient denies all symptoms; specifically denies fever, chills, chest pain, palpitations, dyspnea, orthopnea, cough, abdominal pain, nausea, vomiting, diarrhea. He has no other questions or concerns. No concerns per nursing. Reason For Visit: METHAMPHETAMINE ABUSE,COCAINE ABUSE,ACUTE PSYCHOSI Physical Exam Vital Signs: Temp Pulse Resp BP Pulse Ox 98.4 F 68 20 135/90 H 99 02/13/20 11:40 02/13/20 11:40 02/13/20 11:40 02/13/20 11:40 02/13/20 11:40 Intake & Output 02/12/20 02/13/20 02/14/20 06:59 06:59 06:59 Intake Total 4000 6878 1930 Output Total 450 4260 Balance 3550 2618 1930 Weight 111.6 kg 114.4 kg General appearance: PRESENT: no acute distress, cooperative, well-developed, well-nourished - overweight Head exam: PRESENT: atraumatic, normocephalic Eye exam: PRESENT: conjunctiva pink, EOMI, PERRLA. ABSENT: scleral icterus Mouth exam: PRESENT: moist, tongue midline Respiratory exam: PRESENT: clear to auscultation merlin, symmetrical, unlabored, other - room air. ABSENT: rales, rhonchi, wheezes Cardiovascular exam: PRESENT: RRR. ABSENT: diastolic murmur, rubs, systolic murmur Vascular exam: PRESENT: normal capillary refill Extremities exam: PRESENT: full ROM. ABSENT: calf tenderness, clubbing, pedal edema Musculoskeletal exam: PRESENT: ambulatory Neurological exam: PRESENT: alert, awake, oriented to person, oriented to place, oriented to time, oriented to situation, CN II-XII grossly intact. ABSENT: motor sensory deficit Psychiatric exam: PRESENT: appropriate affect, normal mood. ABSENT: homicidal ideation, suicidal ideation Skin exam: PRESENT: dry, intact, warm. ABSENT: cyanosis, rash Results Laboratory Results: 02/13/20 06:35 02/13/20 06:35 02/12/20 02/12/20 02/13/20 13:58 22:00 06:35 WBC RBC Hgb Hct MCV MCH MCHC RDW Plt Count Sodium 137.8 138.1 139.3 Potassium 3.6 3.5 L 3.5 L Chloride 105 106 109 H Carbon Dioxide 24 26 26 Anion Gap 9 6 4 L BUN 35 H 36 H 28 H Creatinine 3.58 H 3.68 H 3.31 H Est GFR ( Amer) 23 L 22 L 25 L Glucose 122 H 113 H 120 H Calcium 8.2 L 8.0 L 8.0 L 02/13/20 06:35 WBC 6.1 RBC 4.08 L Hgb 12.9 L Hct 36.9 L MCV 91 MCH 31.5 MCHC 34.8 RDW 12.7 Plt Count 166 Sodium Potassium Chloride Carbon Dioxide Anion Gap BUN Creatinine Est GFR ( Amer) Glucose Calcium 02/11/20 02/12/20 02/12/20 20:55 10:14 13:58 Creatine Kinase 30283 H 29295 H 82593 H 02/12/20 02/13/20 22:00 06:35 Creatine Kinase 04335 H 05054 H Impressions: Chest X-Ray 02/11/20 13:58 IMPRESSION: NO ACUTE RADIOGRAPHIC FINDING IN THE CHEST. Assessment and Plan - Diagnosis (1) Acute kidney injury Is this a current diagnosis for this admission?: Yes Plan: Improved today; Cr 2.62-> 3.68-> 3.31 Increased urine output today. Secondary to exogenous substances and rhabdomyolysis. Patient is admitted to [facility] on continuous telemetry. Continue generous IVF w/ NS at 200 mls/hr Strict I&Os Serial chemistries. Low threshold for nephrology consultation. (2) Rhabdomyolysis Qualifiers: Rhabdomyolysis type: non-traumatic Qualified Code(s): M62.82 - Rhabd omyolysis Is this a current diagnosis for this admission?: Yes Plan: Secondary to cocaine and amphetamine use. Likely worsened secondary to muscle straining against restraints overnight. Now reporting generalized muscle aches. Renal function is worsening; CR increased to 3.28. CK 11,982-> 26635-> 36360-> 22616. He is receiving generous hydration continue NS at 200ml/hrs Follow up chemistry and CK. (3) Acute psychosis Is this a current diagnosis for this admission?: Yes Plan: Resolved. The patient is calm and cooperative. Mental health consulted; have cleared the patient. (4) Polysubstance abuse Is this a current diagnosis for this admission?: Yes Plan: He is using cocaine and methamphetamine. Reports that he also used LSD or similar substance. Mental health consulted. Avoid beta blockers. Supportive care. Discharge planning consulted; patient requesting list of substance abuse assistance centers. (5) Body aches Is this a current diagnosis for this admission?: Yes Plan: Improved; secondary to all of the above. Continue generous IVF Lidoderm patches. Flexeril prn muscle spasms. Avoiding tylenol and NSAIDS at this time r/t worsening renal function and upward trend in LFTs. (6) Hx of human immunodeficiency virus infection Is this a current diagnosis for this admission?: Yes Plan: Currently on Atripla Holding secondary to TAN (not recommended for CrCl <50ml/min). - Time Time Spent with patient: 25-34 minutes Medications reviewed and adjusted accordingly: Yes Anticipated Discharge Disposition: Home, Self Care Anticipated Discharge Timeframe: TBD
[2020-02-13] MEDS: LIDOCAINE 5% (700 MG) TRANSDERMAL ADH..PATCH TP SCH ×2 (14:15→15:04)
[2020-02-13] MEDS: CYCLOBENZAPRINE HCL 10 MG TABLET PO PRN ×2 (15:03→23:28)
[2020-02-13 17:34] LABS: ANION GAP 5 (5-19); BLOOD UREA NITROGEN 25 mg/dL (7-20); CALCIUM 8.4 mg/dL (8.4-10.2); CARBON DIOXIDE 27 mmol/L (22-30); CHLORIDE 108 mmol/L (98-107); GLUCOSE 109 mg/dL (75-110); POTASSIUM 3.7 mmol/L (3.6-5.0)
[2020-02-14] MEDS ORDERED: CHLORPROMAZINE HCL INJ 25 MG/1 ML AMPULE ONE ×2 (06:33→22:52)
[2020-02-14] MEDS: NORMAL SALINE 1000 ML 1,000 ML IV PRN ×3 (06:52→18:22)
[2020-02-14] MEDS: HEPARIN SOD (PORCINE) 5,000 UNIT/ML 1 ML VIAL SUBCUT SCH ×3 (06:52→23:00)
[2020-02-14] MEDS: CHLORPROMAZINE HCL INJ 25 MG/1 ML AMPULE IV PRN ×2 (06:53→23:03)
[2020-02-14 07:04] LABS: ANION GAP 5 (5-19); BLOOD UREA NITROGEN 18 mg/dL (7-20); CALCIUM 8.5 mg/dL (8.4-10.2); CARBON DIOXIDE 26 mmol/L (22-30); CHLORIDE 111 mmol/L (98-107); GLUCOSE 106 mg/dL (75-110); POTASSIUM 4.4 mmol/L (3.6-5.0)
[2020-02-14] MEDS: LIDOCAINE 5% (700 MG) TRANSDERMAL ADH..PATCH TP SCH (09:49)
[2020-02-14] MEDS: CYCLOBENZAPRINE HCL 10 MG TABLET PO PRN (15:52)
--- NOTE | 2020-02-14 17:18 | PDOC PROGRESS REPORT ---
Subjective Date:: 02/14/20 Subjective:: The patient is a 44-year-old male with a past medical history significant for asthma, bipolar disorder, depression, schizoaffective disorder, HIV, obesity, and substance abuse who was admitted 02/12/2020 with Acute kidney injury secondary to rhabdomyolysis and polysubstance abuse. Patient was seen on afternoon rounds. He was found resting in bed, comfortably, on room air. A&O x4. Patient denies fever, chills, chest pain, palpitations, dyspnea, orthopnea, cough, abdominal pain, nausea, vomiting, diarrhea. He has no other questions or concerns. No concerns per nursing. Reason For Visit: METHAMPHETAMINE ABUSE,COCAINE ABUSE,ACUTE PSYCHOSI Physical Exam Vital Signs: Temp Pulse Resp BP Pulse Ox 98.5 F 60 18 150/87 H 100 02/14/20 15:43 02/14/20 15:43 02/14/20 15:43 02/14/20 15:43 02/14/20 15:43 Intake & Output 02/13/20 02/14/20 02/15/20 06:59 06:59 06:59 Intake Total 6878 7073 1480 Output Total 4260 6850 700 Balance 2618 223 780 Weight 114.4 kg 115.8 kg General appearance: PRESENT: no acute distress, cooperative, well-developed, well-nourished - overweight Head exam: PRESENT: atraumatic, normocephalic Eye exam: PRESENT: conjunctiva pink, EOMI, PERRLA. ABSENT: scleral icterus Mouth exam: PRESENT: moist, tongue midline Respiratory exam: PRESENT: clear to auscultation merlin, symmetrical, unlabored, other - room air. ABSENT: rales, rhonchi, wheezes Cardiovascular exam: PRESENT: RRR. ABSENT: diastolic murmur, rubs, systolic murmur Pulses: PRESENT: normal dorsalis pedis pul Vascular exam: PRESENT: normal capillary refill Extremities exam: PRESENT: full ROM. ABSENT: calf tenderness, clubbing, pedal edema Musculoskeletal exam: PRESENT: ambulatory Neurological exam: PRESENT: alert, awake, oriented to person, oriented to place, oriented to time, oriented to situation, CN II-XII grossly intact. ABSENT: motor sensory deficit Psychiatric exam: PRESENT: appropriate affect, normal mood. ABSENT: homicidal ideation, suicidal ideation Skin exam: PRESENT: dry, intact, warm. ABSENT: cyanosis, rash Results Laboratory Results: 02/13/20 06:35 02/14/20 05:57 02/13/20 02/14/20 16:44 05:57 Sodium 139.7 142.1 Potassium 3.7 4.4 Chloride 108 H 111 H Carbon Dioxide 27 26 Anion Gap 5 5 BUN 25 H 18 Creatinine 2.80 H 2.28 H Est GFR ( Amer) 30 L 38 L Glucose 109 106 Calcium 8.4 8.5 02/11/20 02/12/20 02/12/20 20:55 10:14 13:58 Creatine Kinase 29778 H 87210 H 27576 H 02/12/20 02/13/20 22:00 06:35 Creatine Kinase 74523 H 33121 H Impressions: Chest X-Ray 02/11/20 13:58 IMPRESSION: NO ACUTE RADIOGRAPHIC FINDING IN THE CHEST. Assessment and Plan - Diagnosis (1) Acute kidney injury Is this a current diagnosis for this admission?: Yes Plan: Improved today; Cr 2.62-> 3.68-> 3.31-> 2.28 Excellent urine output today. Secondary to exogenous substances and rhabdomyolysis. Patient is admitted to [facility] on continuous telemetry. Continue generous IVF w/ NS at 200 mls/hr Strict I&Os Serial chemistries. Low threshold for nephrology consultation. (2) Rhabdomyolysis Qualifiers: Rhabdomyolysis type: non-traumatic Qualified Code(s): M62.82 - Rhabdomyolys is Is this a current diagnosis for this admission?: Yes Plan: Secondary to cocaine and amphetamine use. Likely worsened secondary to muscle straining against restraints overnight. Now reporting generalized muscle aches. Renal function is worsening; CR increased to 3.28. CK 11,982-> 19651-> 25703-> 53969. He is receiving generous hydration continue NS at 200ml/hrs Follow up chemistry and CK. (3) Acute psychosis Is this a current diagnosis for this admission?: Yes Plan: Resolved. The patient is calm and cooperative. Mental health consulted; have cleared the patient. (4) Polysubstance abuse Is this a current diagnosis for this admission?: Yes Plan: He is using cocaine and methamphetamine. Reports that he also used LSD or similar substance. Mental health consulted. Avoid beta blockers. Supportive care. Discharge planning consulted; patient requesting list of substance abuse assistance centers. (5) Body aches Is this a current diagnosis for this admission?: Yes Plan: Improved; secondary to all of the above. Continue generous IVF Lidoderm patches. Flexeril prn muscle spasms. Avoiding tylenol and NSAIDS at this time r/t worsening renal function and upward trend in LFTs. (6) Hx of human immunodeficiency virus infection Is this a current diagnosis for this admission?: Yes Plan: Currently on Atripla Holding secondary to TAN (not recommended for CrCl <50ml/min). - Time Time Spent with patient: 25-34 minutes Medications reviewed and adjusted accordingly: Yes Anticipated Discharge Disposition: Home, Self Care Anticipated Discharge Timeframe: within 48 hours
[2020-02-14] MEDS: LOSARTAN POTASSIUM 25 MG TABLET PO SCH (17:21)
[2020-02-14] MEDS: PHARMACY COMMUNICATION ORDER MC SCH (21:54)
[2020-02-14] MEDS ORDERED: CHLORPROMAZINE HCL 25 MG TABLET ONE (22:20)
[2020-02-15] MEDS: NORMAL SALINE 1000 ML 1,000 ML IV PRN ×5 (02:26→22:17)
[2020-02-15] MEDS: HEPARIN SOD (PORCINE) 5,000 UNIT/ML 1 ML VIAL SUBCUT SCH ×3 (06:10→22:17)
[2020-02-15 08:02] LABS: ANION GAP 6 (5-19); BLOOD UREA NITROGEN 16 mg/dL (7-20); CALCIUM 8.6 mg/dL (8.4-10.2); CARBON DIOXIDE 25 mmol/L (22-30); CHLORIDE 110 mmol/L (98-107); GLUCOSE 113 mg/dL (75-110); POTASSIUM 4.2 mmol/L (3.6-5.0)
[2020-02-15 08:26] LABS: CREATINE KINASE 12427 U/L (55-170)
[2020-02-15] MEDS: LIDOCAINE 5% (700 MG) TRANSDERMAL ADH..PATCH TP SCH (09:52)
[2020-02-15] MEDS: LOSARTAN POTASSIUM 25 MG TABLET PO SCH (09:53)
[2020-02-15] MEDS ORDERED: ACETAMINOPHEN 325 MG TABLET PO PRN (10:15)
[2020-02-15] MEDS ORDERED: IBUPROFEN 600 MG TABLET PO PRN (10:15)
--- NOTE | 2020-02-15 16:18 | PDOC PROGRESS REPORT ---
Subjective Date:: 02/15/20 Subjective:: The patient is a 44-year-old male with a past medical history significant for asthma, bipolar disorder, depression, schizoaffective disorder, HIV, obesity, and substance abuse who was admitted 02/12/2020 with Acute kidney injury secondary to rhabdomyolysis and polysubstance abuse. Patient was seen on morning rounds. He was found resting in bed, comfortably, on room air. A&O x4. He feels well today. Does have some upper back/bilateral shoulder muscle discomfort. Asks for tylenol. Otherwise, no complaints. Patient denies fever, chills, chest pain, palpitations, dyspnea, orthopnea, cough, abdominal pain, nausea, vomiting, diarrhea. He has no other questions or concerns. No concerns per nursing. Reason For Visit: METHAMPHETAMINE ABUSE,COCAINE ABUSE,ACUTE PSYCHOSI Physical Exam Vital Signs: Temp Pulse Resp BP Pulse Ox 98.6 F 59 L 19 144/95 H 100 02/15/20 12:42 02/15/20 14:00 02/15/20 12:42 02/15/20 12:42 02/15/20 12:42 Intake & Output 02/14/20 02/15/20 02/16/20 06:59 06:59 06:59 Intake Total 7073 6784 2460 Output Total 6850 4700 2445 Balance 223 2084 15 Weight 115.8 kg 112.2 kg General appearance: PRESENT: no acute distress, cooperative, obese, well- developed, well-nourished Head exam: PRESENT: atraumatic, normocephalic Eye exam: PRESENT: conjunctiva pink, EOMI, PERRLA. ABSENT: scleral icterus Mouth exam: PRESENT: moist, tongue midline Respiratory exam: PRESENT: clear to auscultation merlin, symmetrical, unlabored. ABSENT: rales, rhonchi, wheezes Cardiovascular exam: PRESENT: RRR. ABSENT: diastolic murmur, rubs, systolic murmur Vascular exam: PRESENT: normal capillary refill Extremities exam: PRESENT: full ROM. ABSENT: calf tenderness, clubbing, pedal edema Musculoskeletal exam: PRESENT: ambulatory Neurological exam: PRESENT: alert, awake, oriented to person, oriented to place, oriented to time, oriented to situation, CN II-XII grossly intact. ABSENT: motor sensory deficit Psychiatric exam: PRESENT: appropriate affect, normal mood. ABSENT: homicidal ideation, suicidal ideation Skin exam: PRESENT: dry, intact, warm. ABSENT: cyanosis, rash Results Laboratory Results: 02/13/20 06:35 02/15/20 06:42 02/15/20 06:42 Sodium 140.7 Potassium 4.2 Chloride 110 H Carbon Dioxide 25 Anion Gap 6 BUN 16 Creatinine 1.75 H Est GFR ( Amer) 52 L Glucose 113 H Calcium 8.6 02/11/20 02/12/20 02/12/20 20:55 10:14 13:58 Creatine Kinase 60888 H 97360 H 68272 H 02/12/20 02/13/20 02/15/20 22:00 06:35 06:42 Creatine Kinase 91308 H 79113 H 55553 H Impressions: Chest X-Ray 02/11/20 13:58 IMPRESSION: NO ACUTE RADIOGRAPHIC FINDING IN THE CHEST. Assessment and Plan - Diagnosis (1) Acute kidney injury Is this a current diagnosis for this admission?: Yes Plan: Improved today; Cr 2.62-> 3.68-> 3.31-> 2.28-> 1.75 Excellent urine output today. Secondary to exogenous substances and rhabdomyolysis. Patient is admitted to [facility] on continuous telemetry. Continue generous IVF w/ NS at 200 mls/hr Strict I&Os F/u chemistry (2) Rhabdomyolysis Qualifiers: Rhabdomyolysis type: non-traumatic Qualified Code(s): M62.82 - Rhabdomyolysis Is this a current diagnosis for this admission?: Yes Plan: Secondary to cocaine and amphetamine use. Likely worsened secondary to muscle straining against restraints overnight. Renal function is improved. CK 11,982-> 37971-> 93260-> 33084-> 93043. He is receiving generous hydration continue NS at 200ml/hrs Follow up chemistry and CK. (3) Acute psychosis Is this a current diagnosis for this admission?: Yes Plan: Resolved. The patient is calm and cooperative. Mental health consulted; have cleared the patient. (4) Polysubstance abuse Is this a current diagnosis for this admission?: Yes Plan: He is using cocaine and methamphetamine. Reports that he also used LSD or similar substance. Mental health consulted. Avoid beta blockers. Supportive care. Discharge planning consulted; patient requesting list of substance abuse assistance centers. (5) Body aches Is this a current diagnosis for this admission?: Yes Plan: Improved; secondary to all of the above. Continue generous IVF Lidoderm patches. Flexeril prn muscle spasms. Low dose tylenol and motrin as needed. (6) Hx of human immunodeficiency virus infection Is this a current diagnosis for this admission?: Yes Plan: Currently on Atripla Holding secondary to TAN (not recommended for CrCl <50ml/min). - Time Time Spent with patient: 25-34 minutes Medications reviewed and adjusted accordingly: Yes Anticipated Discharge Disposition: Home, Self Care Anticipated Discharge Timeframe: within 24 hours
[2020-02-15] MEDS: PHARMACY COMMUNICATION ORDER MC SCH (22:02)
[2020-02-16] MEDS ORDERED: CHLORPROMAZINE HCL INJ 25 MG/1 ML AMPULE ONE (00:16)
[2020-02-16] MEDS: CYCLOBENZAPRINE HCL 10 MG TABLET PO PRN (00:22)
[2020-02-16] MEDS: CHLORPROMAZINE HCL INJ 25 MG/1 ML AMPULE IV PRN (00:22)
[2020-02-16] MEDS: NORMAL SALINE 1000 ML 1,000 ML IV PRN ×2 (04:00→09:19)
[2020-02-16] MEDS: HEPARIN SOD (PORCINE) 5,000 UNIT/ML 1 ML VIAL SUBCUT SCH (06:37)
[2020-02-16 07:28] LABS: ANION GAP 6 (5-19); BLOOD UREA NITROGEN 14 mg/dL (7-20); CALCIUM 8.7 mg/dL (8.4-10.2); CARBON DIOXIDE 25 mmol/L (22-30); CHLORIDE 109 mmol/L (98-107); GLUCOSE 99 mg/dL (75-110); POTASSIUM 4.3 mmol/L (3.6-5.0)
[2020-02-16 08:09] LABS: CREATINE KINASE 7208 U/L (55-170)
--- NOTE | 2020-02-16 10:07 | PDOC DISCHARGE SUMMARY ---
Impression - Admit/DC Date/PCP Admission Date/Primary Care Provider: 02/12/20 01:57 PIETER MEJÍA NP Discharge Date: 02/16/20 - Discharge Diagnosis (1) Acute kidney injury Is this a current diagnosis for this admission?: Yes (2) Rhabdomyolysis Is this a current diagnosis for this admission?: Yes (3) Acute psychosis Is this a current diagnosis for this admission?: Yes (4) Polysubstance abuse Is this a current diagnosis for this admission?: Yes (5) Body aches Is this a current diagnosis for this admission?: Yes (6) Hx of human immunodeficiency virus infection Is this a current diagnosis for this admission?: Yes - Additional Information Discharge Diet: Regular, Other (Comments) - Drink plenty of fluids. Avoid alcohol. Discharge Activity: Activity As Tolerated, Balance Activity w/Rest Referrals: PIETER MEJÍA NP [Primary Care Provider] - 02/29/20 10:30 am (left message to schedule--DJL (10:20) Follow up within 1 week.) Prescriptions: Losartan Potassium [Cozaar 25 mg Tablet] 25 mg PO DAILY #30 tablet Home Medications: Acetaminophen [Tylenol 325 mg Tablet] 650 mg PO Q4HP PRN tablet 02/16/20 Losartan Potassium [Cozaar 25 mg Tablet] 25 mg PO DAILY #30 tablet 02/16/20 History of Present Illiness History of Present Illness: Per Dr. Dasilva: ARTUR MEDRANO is a 44 year old male Patient is suffering from polysubstance abuse disorder, schizoaffective disorder. He uses cocaine, methamphetamine and last night he took some LSD as well. He became agitated and violent and according to report he wanted to assault somebody. Eventually he was restrained and he was given intramuscular k etamine. He was brought to the emergency department. He required multiple medications to control his behavior. He required four-point restraint. Psychiatric evaluation was completed and the patient was put on 24-hour hold. Once toxic effect of the substances are gone he needs psychiatric reevaluation. He was found to have acute kidney injury and rhabdomyolysis. He received generous intravenous fluid resuscitation with 4 L of saline. He is hemodynamically stable. When I arrived to see him he was sleeping. He woke up easily. He did not fully remember what happened to him. He was cooperative, calm. He denied any complaint. Hospital Course Hospital Course: (1) Acute kidney injury Significantly improved; near normal. Cr 2.62-> 3.68-> 3.31-> 2.28-> 1.75-> 1.52 eGFR >60 Excellent urine output today. Secondary to exogenous substances and rhabdomyolysis. Patient was admitted to [facility] on continuous telemetry. Initially on bicarb drip. Received generous IVF. (2) Rhabdomyolysis Significantly improved. Secondary to cocaine and amphetamine use. Likely worsened secondary to muscle straining against restraints overnight. Renal function is near normal. CK 11,982-> 32611-> 67365-> 89433-> 99511-> 7208. He is received generous hydration. (3) Acute psychosis Resolved. The patient is calm and cooperative. Mental health consulted; have cleared the patient. (4) Polysubstance abuse He is using cocaine and methamphetamine. Reports that he also used LSD or similar substance. Mental health consulted. Have cleared patient for discharge. Avoid beta blockers. Supportive care. Discharge planning consulted; patient requested list of substance abuse ass istance centers. (5) Body aches Resolved; secondary to all of the above. Received generous IVF Lidoderm patches. Flexeril prn muscle spasms. Low dose tylenol and motrin as needed. (6) Hx of human immunodeficiency virus infection Currently on Atripla Held secondary to TAN (not recommended for CrCl <50ml/min). May resume at discharge. Physical Exam Vital Signs: Temp Pulse Resp BP Pulse Ox 97.8 F 70 20 151/82 H 96 02/16/20 03:57 02/16/20 03:57 02/16/20 03:57 02/16/20 03:57 02/16/20 03:57 Intake & Output 02/15/20 02/16/20 02/17/20 06:59 06:59 06:59 Intake Total 6784 7435 1000 Output Total 4740 6450 Balance 2080 985 1000 Weight 112.2 kg 105.8 kg General appearance: PRESENT: no acute distress, cooperative, obese, well- developed, well-nourished Head exam: PRESENT: atraumatic, normocephalic Eye exam: PRESENT: conjunctiva pink, EOMI, PERRLA. ABSENT: scleral icterus Mouth exam: PRESENT: moist, tongue midline Respiratory exam: PRESENT: clear to auscultation merlin, symmetrical, unlabored. ABSENT: rales, rhonchi, wheezes Cardiovascular exam: PRESENT: RRR, +S1, +S2. ABSENT: diastolic murmur, rubs, systolic murmur Pulses: PRESENT: normal dorsalis pedis pul Vascular exam: PRESENT: normal capillary refill GI/Abdominal exam: PRESENT: normal bowel sounds, soft. ABSENT: distended, guarding, mass, organolmegaly, rebound, tenderness Rectal exam: PRESENT: deferred Extremities exam: PRESENT: full ROM. ABSENT: calf tenderness, clubbing, pedal edema Musculoskeletal exam: PRESENT: ambulatory Neurological exam: PRESENT: alert, awake, oriented to person, oriented to place, oriented to time, oriented to situation, CN II-XII grossly intact. ABSENT: motor sensory deficit Psychiatric exam: PRESENT: appropriate affect, normal mood. ABSENT: homicidal ideation, suicidal ideation Skin exam: PRESENT: dry, intact, warm. ABSENT: cyanosis, rash Results Laboratory Results: WBC 6.1 10^3/uL (4.0-10.5) 02/13/20 06:35 RBC 4.08 10^6/uL (4.35-5.55) L 02/13/20 06:35 Hgb 12.9 g/dL (13.5-17.0) L 02/13/20 06:35 Hct 36.9 % (37.9-51.0) L 02/13/20 06:35 MCV 91 fl (80-97) 02/13/20 06:35 MCH 31.5 pg (27.0-33.4) 02/13/20 06:35 MCHC 34.8 g/dL (32.0-36.0) 02/13/20 06:35 RDW 12.7 % (11.5-14.0) 02/13/20 06:35 Plt Count 166 10^3/uL (150-450) 02/13/20 06:35 Lymph % (Auto) 21.9 % (13-45) 02/12/20 10:14 Maury % (Auto) 9.5 % (3-13) 02/12/20 10:14 Eos % (Auto) 0.4 % (0-6) 02/12/20 10:14 Baso % (Auto) 0.5 % (0-2) 02/12/20 10:14 Absolute Neuts (auto) 5.2 10^3/uL (1.7-8.2) 02/12/20 10:14 Absolute Lymphs (auto) 1.7 10^3/uL (0.5-4.7) 02/12/20 10:14 Absolute Monos (auto) 0.7 10^3/uL (0.1-1.4) 02/12/20 10:14 Absolute Eos (auto) 0.0 10^3/uL (0.0-0.6) 02/12/20 10:14 Absolute Basos (auto) 0.0 10^3/uL (0.0-0.2) 02/12/20 10:14 Total Counted 100 02/11/20 13:06 Seg Neutrophils % 67.7 % (42-78) 02/12/20 10:14 Seg Neuts % (Manual) 66 % (42-78) 02/11/20 13:06 Lymphocytes % (Manual) 28 % (13-45) 02/11/20 13:06 Monocytes % (Manual) 6 % (3-13) 02/11/20 13:06 Eosinophils % (Manual) 0 % (0-6) 02/11/20 13:06 Basophils % (Manual) 0 % (0-2) 02/11/20 13:06 Abs Neuts (Manual) 14.7 10^3/uL (1.7-8.2) H 02/11/20 13:06 Abs Lymphs (Manual) 6.2 10^3/uL (0.5-4.7) H 02/11/20 13:06 Abs Monocytes (Manual) 1.3 10^3/uL (0.1-1.4) 02/11/20 13:06 Absolute Eos (Manual) 0.0 10^3/uL (0.0-0.6) 02/11/20 13:06 Abs Basophils (Manual) 0.0 10^3/uL (0.0-0.2) 02/11/20 13:06 Platelet Comment ADEQUATE 02/11/20 13:06 RBC Morph Comment NORMO-CYTIC/CHROMIC 02/11/20 13:06 Carbonic Acid 1.21 mmol/L (1.05-1.35) 02/11/20 14:55 HCO3/H2CO3 Ratio 18:1 02/11/20 14:55 ABG pH 7.35 (7.35-7.45) 02/11/20 14:55 ABG pCO2 40.2 mmHg (35-45) 02/11/20 14:55 ABG pO2 103.4 mmHg (80-100) H 02/11/20 14:55 ABG HCO3 21.8 mmol/L (20-24) 02/11/20 14:55 ABG Total CO2 23.0 mmol/L (23-27) 02/11/20 14:55 ABG O2 Saturation 97.5 % (94-98) 02/11/20 14:55 ABG Base Excess -3.5 mmol/L 02/11/20 14:55 FiO2 36% 02/11/20 14:55 Sodium 139.8 mmol/L (137-145) 02/16/20 06:26 Potassium 4.3 mmol/L (3.6-5.0) 02/16/20 06:26 Chloride 109 mmol/L (98-107) H 02/16/20 06:26 Carbon Dioxide 25 mmol/L (22-30) 02/16/20 06:26 Anion Gap 6 (5-19) 02/16/20 06:26 BUN 14 mg/dL (7-20) 02/16/20 06:26 Creatinine 1.52 mg/dL (0.52-1.25) H 02/16/20 06:26 Est GFR ( Amer) > 60 (>60) 02/16/20 06:26 Est GFR (MDRD) Non-Af 50 (>60) L 02/16/20 06:26 Glucose 99 mg/dL (75-110) 02/16/20 06:26 Calcium 8.7 mg/dL (8.4-10.2) 02/16/20 06:26 Magnesium 3.0 mg/dL (1.6-2.3) H 02/12/20 10:14 Total Bilirubin 0.5 mg/dL (0.2-1.3) 02/12/20 10:14 Direct Bilirubin 0.1 mg/dL (0.0-0.4) 02/12/20 10:14 Neonat Total Bilirubin Not Reportable 02/12/20 10:14 Neonat Direct Bilirubin Not Reportable 02/12/20 10:14 Neonat Indirect Bili Not Reportable 02/12/20 10:14 AST 406 U/L (17-59) H 02/12/20 10:14 ALT 93 U/L (<50) H 02/12/20 10:14 Alkaline Phosphatase 70 U/L (38-126) 02/12/20 10:14 Creatine Kinase 7208 U/L (55-170) H 02/16/20 06:26 Total Protein 6.0 g/dL (6.3-8.2) L 02/12/20 10:14 Albumin 3.1 g/dL (3.5-5.0) L 02/12/20 10:14 Urine Color HERBERT 02/11/20 13:20 Urine Appearance SLIGHTLY-CLOUDY 02/11/20 13:20 Urine pH 5.0 (5.0-9.0) 02/11/20 13:20 Ur Specific [place] 1.030 02/11/20 13:20 Urine Protein >=500 mg/dL (NEGATIVE) H 02/11/20 13:20 Urine Glucose (UA) NEGATIVE mg/dL (NEGATIVE) 02/11/20 13:20 Urine Ketones NEGATIVE mg/dL (NEGATIVE) 02/11/20 13:20 Urine Blood NEGATIVE (NEGATIVE) 02/11/20 13:20 Urine Nitrite NEGATIVE (NEGATIVE) 02/11/20 13:20 Urine Bilirubin NEGATIVE (NEGATIVE) 02/11/20 13:20 Urine Urobilinogen 4.0 mg/dL (<2.0) H 02/11/20 13:20 Ur Leukocyte Esterase NEGATIVE (NEGATIVE) 02/11/20 13:20 Urine WBC (Auto) 2 /HPF 02/11/20 13:20 Urine RBC (Auto) 2 /HPF 02/11/20 13:20 U Hyaline Cast (Auto) 4 /LPF 02/11/20 13:20 Urine Mucus (Auto) MANY /LPF 02/11/20 13:20 Urine Ascorbic Acid NEGATIVE (NEGATIVE) 02/11/20 13:20 Salicylates < 1.0 mg/dL (2.0-20.0) L 02/11/20 13:06 Urine Opiates Screen NEGATIVE 02/11/20 13:20 Urine Methadone Screen NEGATIVE 02/11/20 13:20 Acetaminophen < 10 ug/mL (10-30) L 02/11/20 13:06 Ur Barbiturates Screen NEGATIVE 02/11/20 13:20 Ur Phencyclidine Scrn NEGATIVE 02/11/20 13:20 Ur Amphetamines Screen 02/11/20 13:20 U Benzodiazepines Scrn NEGATIVE 02/11/20 13:20 Urine Cocaine Screen UNCONFIRMED POSITIVE 02/11/20 13:20 U Marijuana (THC) Screen NEGATIVE 02/11/20 13:20 Serum Alcohol < 10 mg/dL (NONE DETECTED) 02/11/20 13:06 Impressions: Chest X-Ray 02/11/20 13:58 IMPRESSION: NO ACUTE RADIOGRAPHIC FINDING IN THE CHEST. Plan Plan of Treatment: Patient is discharged home in stable condition. He is advised to follow up with his primary care provider within 1 week. He is instructed to rest and continue to drink plenty of fluids. Resume Atripla. Avoid strenuous activity, dehydration, caffeinated drinks, and alcohol. Return to the emergency department, as needed, for concerning symptoms. Time Spent: Greater than 30 Minutes Stroke Is this a Stroke Patient?: No Acute Heart Failure Is this a Heart Failure Patient?: No
[2020-02-16] MEDS: LOSARTAN POTASSIUM 25 MG TABLET PO SCH (10:30)
[2020-02-16] MEDS: LIDOCAINE 5% (700 MG) TRANSDERMAL ADH..PATCH TP SCH (10:30)
[2020-02-16 12:08] VITALS: BP 142/82
== END 2020-02-16 12:44 | disposition home or self-care (01) | DRG 683 ==
LOC: ER 11:51 → EH 02-12 01:57 → 3S 02-12 04:28
PROVIDERS: ADMIT Internal Medicine; ATTEND Registered Nurse
DX: N17.9 Acute kidney failure, unspecified (principal); M62.82 Rhabdomyolysis; B20 Human immunodeficiency virus [HIV] disease; F14.159 Cocaine abuse with cocaine-induced psychotic disorder, unspecified; F15.159 Other stimulant abuse with stimulant-induced psychotic disorder, unspecified; F16.159 Hallucinogen abuse with hallucinogen-induced psychotic disorder, unspecified; F25.9 Schizoaffective disorder, unspecified; F17.210 Nicotine dependence, cigarettes, uncomplicated; F12.10 Cannabis abuse, uncomplicated; Z79.899 Other long term (current) drug therapy; Z78.1 Physical restraint status
CPT/HCPCS: 36415; 36600; 71045; 80048; 80053; 80307; 81001; 82550; 82803; 83735; 85025; 85027; 87070; 93005; 93010; 96361; 96374; 96375; 99285; J1200; J1630; J1644; J2060; J3230; J3490; J7030; J7060